=== PATIENT | male | born 1980 | race Caucasian/White ===

== ENCOUNTER 2020-02-21 10:06 | Day surgery (SDC) | payer OTHER, SELFPAY ==
[2020-02-13 20:11] VITALS: BMI 29.2
--- NOTE | 2020-02-20 08:57 | HO.ANESPROP2 ---
Documented by User: Maya Michaud 02/20/20 08:57 HPI - Anesthesia Eval Consult details Narrative: 40yo M for Upper Endoscopy [facility] Past Medical History Medical History Elevated liver enzymes GERD (gastroesophageal reflux disease) Hypercholesteremia Social History Social History Smoking Status: Former smoker Smoking Quit Date: 2018 Use of substances other than those prescribed or required for medical reasons: No Advance Directives: No Advance Directives Information Provided: No Advance Directives on File: No Meds Allergies Allergy/AdvReac Type Severity Reaction Status Date / Time No Known Allergies Allergy Verified 02/13/20 20:18 Home Medications Medication Instructions Recorded Confirmed Type omeprazole magnesium [Prilosec OTC] 20 mg PO DAILY 02/13/20 02/13/20 History pravastatin 1 tab PO DAILY 02/13/20 02/13/20 History Exam Exam Date and Time: February 20, 2020 0857 Height,Weight and Vital Signs: Height 5 ft 11 in Weight 95.254 kg Assessment and Plan Assessment Anesthesia Assessment: Chart Reviewed Documented by User: Ana Bah 02/21/20 11:48 [facility] Past Medical History Medical History Elevated liver enzymes GERD (gastroesophageal reflux disease) Hypercholesteremia Social History Social History Smoking Status: Former smoker Smoking Quit Date: 2018 Use of substances other than those prescribed or required for medical reasons: No Advance Directives: No Advance Directives Information Provided: No Advance Directives on File: No Meds Allergies Allergy/AdvReac Type Severity Reaction Status Date / Time No Known Allergies Allergy Verified 02/13/20 20:18 Home Medications Medication Instructions Recorded Confirmed Type omeprazole magnesium [Prilosec OTC] 20 mg PO DAILY 02/13/20 02/13/20 History pravastatin 1 tab PO DAILY 02/13/20 02/13/20 History Exam Airway Mallampati Class: I TM Dist: >3cm Neck ROM: Full Heart: RRR Lungs: CTA Assessment and Plan Assessment Anesthesia Assessment: Anesthesia Plan Discussed and Chart Reviewed Final Anesthetic Review NPO: Yes ASA Class: II Final Preanesthetic Review: Meds/Allgs Chart Reviewed, Consent Obtained/Reviewed and Anes Risks/Benef Reviewed Patient Risk: Low Procedure Risk: Intermediate Anesthetic Plan Anesthetic Plan: MAC:
[2020-02-21 10:24] VITALS: BP 139/82; PULSE 93; RESP 16; TEMP 36.2; O2SAT 98
[2020-02-21] MEDS: Lactated Ringers 1,000 ML 100 ML IVCONT (10:35)
--- NOTE | 2020-02-21 11:16 | MHC.SHP ---
Pre-Procedural Eval Section A The patient is an INPATIENT: No Changes since office visit: No Cold of Flu in the past 2 weeks, No New Medical Problems, No Changes in Medication and No Patient answered all questions The History & Physical has been completed within 30 days and I have reviewed it.: Yes Section B Chief Complaint: reflux Allergies: Allergies Allergy/AdvReac Type Severity Reaction Status Date / Time No Known Allergies Allergy Verified 02/13/20 20:18 Plan I have reviewed the history and physical and performed a pertinent physical examination on my patient. No changes have occurred unless specified.
[2020-02-21 11:42] VITALS: BP 137/85; PULSE 85; RESP 18; TEMP 36.4; O2SAT 99
--- NOTE | 2020-02-21 11:42 | PM.OP ---
Brief Operative Note Date of Service: 02/21/20 Pre-op diagnosis: GERD Post-op diagnosis: same Procedure: EGD Surgeon: Wilmar Leyva Anesthesia: MAC Estimated blood loss (mL): 5 Pathology: other (antral and EGJ biopsies) Condition: stable Disposition: PACU
[2020-02-21 11:57] VITALS: BP 109/75; PULSE 75; RESP 18; TEMP 36.4; O2SAT 96
--- NOTE | 2020-02-21 12:11 | OP_ITS ---
SURGEON: Wilmar Leyva MD INDICATIONS: Gastroesophageal reflux disease. PREOPERATIVE DIAGNOSIS: POSTOPERATIVE DIAGNOSIS: PROCEDURE PERFORMED: Upper endoscopy with biopsy. ESTIMATED BLOOD LOSS: COMPLICATIONS: ANESTHESIA: ASSISTANTS: SPECIMENS: MEDICATIONS: Monitored anesthesia care. DESCRIPTION OF PROCEDURE: History and physical performed. The risks and benefits of the procedure were explained to the patient. Informed consent was obtained. The patient was placed in the left lateral decubitus position. The Olympus video gastroscope was introduced into the esophagus, stomach, and duodenum. Examination was performed and the scope was removed. He tolerated the procedure well and returned to the recovery area in stable condition. FINDINGS: Esophagus: The esophagus was normal. There was no esophagitis. Biopsies were obtained from the EG junction. Stomach: Stomach showed no evidence of masses, ulcers, or polyps. Antral biopsies were obtained to rule out H pylori. Duodenum: The bulb and second portion were normal. IMPRESSION: Gastroesophageal reflux disease. RECOMMENDATION: Follow up the biopsy results. Wilmar Leyva MD BC/MODL / [id number] MTDD
--- NOTE | 2020-02-21 12:18 | HO.POSTANES ---
Post Anesthesia Evaluation Post Anesthesia Evaluation Vital Signs: Vital Signs Temp Pulse Resp BP Pulse Ox 02/21/20 11:57 97.6 F 75 18 109/75 96 02/21/20 11:42 97.6 F 85 18 137/85 99 02/21/20 10:24 97.1 F 93 16 139/82 98 Anesthesia: Monitored Mental Status: Awake Pain Control: Satisfactory Nausea/Vomiting: None Hydration: Adequate Anesthesia-Related Issues: No Anes. Related Issues
== END 2020-02-21 12:20 ==
LOC: HO.SSS 10:07
PROVIDERS: PCP Registered Nurse; Visit Provider Internal Medicine Gastroenterology
PROC: 0DJ08ZZ Inspection of Upper Intestinal Tract, Via Natural or Artificial Opening Endoscopic (ICD-10-PCS; CPT 43235; principal; 2020-02-21 11:20)
DX: K21.00 Gastro-esophageal reflux disease with esophagitis, without bleeding (principal); R74.8 Abnormal levels of other serum enzymes; E78.00 Pure hypercholesterolemia, unspecified; Z79.899 Other long term (current) drug therapy; Z87.891 Personal history of nicotine dependence
CPT/HCPCS: 43239; 88305; 88342

== ENCOUNTER 2020-09-25 20:41 | Emergency (ER) | payer OTHER, SELFPAY ==
--- NOTE | ~2020-09-25 | XR_ITS ---
EXAMINATION: XR TIBIA AND FIBULA, LEFT CLINICAL INFORMATION: Bruise on left leg. Question fracture. COMPARISON: None TECHNIQUE: AP and lateral views of the left tibia and fibula were obtained. FINDINGS: There is no fracture or cortical disruption. Alignment maintained at the knee and ankle. The soft tissues are unremarkable. XR/XR tibia fibula LT 2V IMPRESSION: No fracture or malalignment.
[2020-09-25 20:46] VITALS: BP 138/89; PULSE 92; RESP 16; TEMP 36.6; O2SAT 96; BMI 30.8
--- NOTE | 2020-09-25 23:26 | ED_ITS ---
HPI - Extremity Injury (Lower) General Chief Complaint: Extremity Injury, Lower Stated Complaint: left leg pain Time Seen by Provider: 09/25/20 22:36 Source: patient Mode of arrival: ambulatory Limitations: no limitations History of Present Illness HPI Narrative: Patient states left leg bruise since this past . Patient states he might have hit it while at work. Patient does work around heavy objects. Patient denies any leg swelling, calf pain, chest pain, shortness of breath, redness, fever, or chills. Patient denies any bruising/ecchymosis elsewhere on his body. complaint: leg injury Related Data Home Medications Medication Instructions Recorded Confirmed omeprazole magnesium 20 mg 20 mg PO DAILY 02/13/20 02/13/20 tablet,delayed release (Prilosec OTC) pravastatin 40 mg tablet 1 tab PO DAILY 02/13/20 02/13/20 Previous Rx's Medication Instructions Recorded cyclobenzaprine 10 mg tablet 10 mg PO TID PRN #18 tab 09/25/20 naproxen 500 mg tablet 500 mg PO BID PRN #20 tab 09/25/20 Allergies Allergy/AdvReac Type Severity Reaction Status Date / Time No Known Allergies Allergy Verified 09/25/20 20:52 Review of Systems Review of Systems: Yes all other systems are reviewed and are negative Constitutional: Constitutional: Reports as per HPI and Reports no additional constitutional complaints Eyes: Eyes: Reports as per HPI and Reports no additional eye complaints ENT: Reports system reviewed and no additional complaints, except as documented and Reports as per HPI Cardiovascular: Cardiovascular: Reports as per HPI and Reports no additional cardiovascular complaints Respiratory: Respiratory: Reports as per HPI and Reports no additional respiratory complaints Gastrointestinal: Gastrointestinal: Reports as per HPI and Reports no additional gastrointestinal complaints Genitourinary: Genitourinary: Reports no additional male genitourinary complaints and Reports as per HPI Musculoskeletal: Musculoskeletal: Reports no additional musculoskeletal complaints and Reports as per HPI Comments: Leg pain. Bruised Neurologic: Reports system reviewed and no additional complaints, except as documented and Reports as per HPI Psychiatric: Psychiatric: Reports no additional psychiatric complaints and Reports as per HPI [facility] Past Medical History Medical History Elevated liver enzymes GERD (gastroesophageal reflux disease) Hypercholesteremia Social History Social History Advance Directives: No Advance Directives Information Provided: Yes Physical Exam Vital Signs: Vital Signs: Last Vital Signs Temp 98 F 09/25/20 20:46 Pulse 92 09/25/20 20:46 Resp 16 09/25/20 20:46 BP 138/89 09/25/20 20:46 Pulse Ox 96 09/25/20 20:46 Body Mass Index 30.8 Const: General: cooperative, healthy appearing, comfortable, no acute distress, well developed, alert and awake Orientation/consciousness: patient oriented x3 HENMT: Head: Yes normal to inspection, Yes No palpable skull fracture present, Yes normocephalic and Yes atraumatic Eyes: General: appearance normal, both eyes and all related structures Neck: Neck: Yes normal visual inspection, Yes full ROM, Yes no lymphadenopathy, Yes no meningeal signs, Yes trachea midline, Yes supple and No tender Chest: Chest palpation & inspection: normal inspection of the chest and normal palpation of entire chest wall Resp: Effort & Inspection: normal respiratory effort and able to speak in complete sentences Cardio: Jugular venous distension: no JVD Heart sounds: S1 normal heart sound present and S2 normal heart sound present GI: Inspection: Yes normal to inspection and No abdominal wall ecchymosis Palpation (GI): Soft to palpation, not firm, nontender, no guarding and not rigid : General: No CVA tenderness and Yes no CVA tenderness Back/Spine/Pelvis: Back: no CVA tenderness, No CVA tenderness and No back tenderness Skin: Other: Ecchymosis on left leg Neuro: General: patient oriented x3, gait normal, moves all extremities, Normal light touch and pain sensation, no meningeal signs and CN's II-XI intact bilaterally Cranial nerves: Yes CN's II-XII intact bilaterally Extrem: Other: Positive for area of ecchymosis. Negative for any calf tende rness. Negative for any crepitus or leg deformity. Motor/neuro/vascular exam intact. Negative for any erythema Psych: Appearance: grossly normal, well kempt and not disheveled Course Course Course Narrative: Was sent for x-ray. Reevaluation(s) Reevaluation #1: X-ray negative for fracture. Not concerned for DVT, cellulitis, or compartment syndrome. Time: 23:37 MDM - Extremity Injury (Lower) MDM Narrative Medical decision making narrative: 23:37 Discharge Plan Discharge Clinical Impression: Contusion Patient Disposition: Home, Self-Care Instructions: Contusion in Adults (ED) Additional Instructions: X-rays came back negative for any fracture. Return to the ED for increased swelling, redness, worsening bruising, paralysis of lower extremity, cold, hotness of skin, loss of sensation, or any other concerning symptoms. Please follow-up with PCP Prescriptions: New naproxen 500 mg tablet 500 mg PO BID PRN (Reason: pain) Qty: 20 RF: 0 cyclobenzaprine 10 mg tablet 10 mg PO TID PRN (Reason: pain) Qty: 18 RF: 0 No Action pravastatin 40 mg tablet 1 tab PO DAILY RF: 0 omeprazole magnesium [Prilosec OTC] 20 mg Tablet,Delayed Release (Dr/Ec) 20 mg PO DAILY RF: 0 Interventions: ED Discharge Assessment Last Done: 09/25/20 23:46 Discharge Date/Time: 09/25/20 23:50 Print Language: Mauritanian
== END 2020-09-25 23:50 | disposition home or self-care (01) ==
PROVIDERS: Emergency Provider Internal Medicine
DX: S80.12XA Contusion of left lower leg, initial encounter (principal); X58.XXXA Exposure to other specified factors, initial encounter; Y93.9 Activity, unspecified; Y92.9 Unspecified place or not applicable; Y99.9 Unspecified external cause status
CPT/HCPCS: 73590; 99283

== ENCOUNTER 2020-11-29 14:17 | Emergency (ER) | payer OTHER, SELFPAY ==
--- NOTE | 2020-11-29 | ECG_ITS ---
Test Reason : palpitations Blood Pressure : / mmHG Vent. Rate : 093 BPM Atrial Rate : 093 BPM P-R Int : 148 ms QRS Dur : 092 ms QT Int : 346 ms P-R-T Axes : 031 -01 005 degrees QTc Int : 430 ms Normal sinus rhythm RSR' or QR pattern in V1 suggests right ventricular conduction delay Otherwise normal ECG When compared with ECG of 03-JUL-2018 17:39, ST no longer depressed in Lateral leads Nonspecific T wave abnormality no longer evident in Anterolateral leads Referred By: Generic ED Physician Electronically Signed By:LOUIS ACOSTA MD
--- NOTE | ~2020-11-29 | XR_ITS ---
EXAMINATION: XR CHEST CLINICAL INFORMATION: Shortness of breath COMPARISON: Chest radiographs 07/03/2018, 04/06/2014 TECHNIQUE: Portable upright AP view of the chest was obtained. FINDINGS: The lungs are clear. The vascularity is normal. There is no pneumothorax or pleural reaction or effusion. The heart is normal in size. The hilar and mediastinal contours and visualized bony structures are unremarkable. XR/XR chest 1V IMPRESSION: Unremarkable examination.
[2020-11-29 14:22] VITALS: BP 151/92; PULSE 91; RESP 18; TEMP 36.7; O2SAT 98; BMI 30.7
--- NOTE | 2020-11-29 15:46 | PC.NURSE ---
Adam presents alert and oriented x 3 with c./o severe palpitations. He states he has a Hx of palpitations but it never lasts this long, it just resolves on its own. This time it's not going away, it's really bad. He denies chest pain. Respirations are spontaneous and non-labored. Speech clear and appropriate. Skin pink/warm/dry. Bedside monitor reveals NSR with occasional PVC's - pt states he feels palpitation that coincides with PVC on bedside monitor. No nausea. No vomiting. No change in bowel or bladder habits. Pt is resting in bed awaiting initial provider eval.
--- NOTE | 2020-11-29 16:09 | ED.ARRPALP ---
HPI - Arrhythmia/Palpitations General Chief Complaint: Arrhythmia/Palpitations Stated Complaint: irregular hearbeat Time Seen by Provider: 11/29/20 15:59 History of Present Illness HPI narrative: Patient 40-year-old male with a history of PACs and PVCs in the past. Presented today with having episodes of palpitation. These palpitations comes as a single beat that he could feel. He is not really short of breath with it he is not having chest pain. No coughing or congestion or upper respiratory symptoms. No history of using excessive cord seen. No recreational drug use. Patient from home. No fever no chills no chest pain or shortness of breath no diaphoresis. No leg swelling. Patient from home. Related Data Home Medications Medication Instructions Recorded Confirmed omeprazole magnesium 20 mg 20 mg PO DAILY 02/13/20 02/13/20 tablet,delayed release (Prilosec OTC) pravastatin 40 mg tablet 1 tab PO DAILY 02/13/20 02/13/20 Previous Rx's Medication Instructions Recorded cyclobenzaprine 10 mg tablet 10 mg PO TID PRN #18 tab 09/25/20 naproxen 500 mg tablet 500 mg PO BID PRN #20 tab 09/25/20 Allergies Allergy/AdvReac Type Severity Reaction Status Date / Time No Known Allergies Allergy Verified 09/25/20 20:52 Review of Systems Review of Systems: No fever no chills no chest pain or diaphoresis All system reviewed otherwise negative [facility] Past Medical History Attestation statement: The following information was validated with the patient. Medical History Elevated liver enzymes GERD (gastroesophageal reflux disease) Hypercholesteremia Social History Social History Alcohol intake: never Patient Tobacco Use Status: Former Tobacco user Smoked in Last 30 Days: No Use of substances other than those prescribed or required for medical reasons: No Advance Directives: No Advance Directives Information Provided: No Physical Exam Vital Signs: Vital Signs: Last Vital Signs Temp 98.3 F 11/29/20 16:41 Pulse 90 11/29/20 16:41 Resp 18 11/29/20 16:41 BP 123/72 11/29/20 16:41 Pulse Ox 99 11/29/20 16:41 Body Mass Index 30.7 Appearance: Alert. Oriented X3. No acute distress. Eyes: Pupils equal, round and reactive to light. ENT: Pharynx normal. Neck: Normal inspection. Neck supple. No lymph nodes noted. No crepitus CVS: Normal heart rate and rhythm. Pulses normal. Normal S1 and S2 Respiratory: No respiratory distress. Breath sounds normal. No Wheezing. No rales Abdomen: Soft and nontender. No rigidity. No distention. good BS x4 Skin: Skin warm and dry. Normal skin color. Normal skin turgor. Extremities: No lower extremity edema. Neurovascular intact to all extremities. No Lacerations. No Rash Neuro: Oriented X 3. No motor deficit. No sensory deficit. Moving all extermities. No slurred speech MDM - Arrhythmia/Palpitations MDM Narrative Medical decision making narrative: Patient well-appearing not acute distress. PVC noted on patient's monitor. Patient's troponin was negative. Patient's thyroid was normal. He is not taking excessive amount of caffeine. No recreational drug use. History of PVCs PACs in the past. Will have patient follow-up with cardiology on an outpatient basis. In stable condition. Patient's EKG showed a sinus pattern heart rate was 90 IA QRS QT within normal limits is no acute ST segment elevation noted. Differential Diagnosis Differential diagnosis: Likely palpitations and anxiety Medical Records Attestation: I reviewed the patient's medical records. Lab Data Attestation: I reviewed the patient's lab results. Result diagrams: 11/29/20 16:22 11/29/20 16:22 Labs: Lab Results 11/29/20 11/29/20 11/29/20 Range/Units 16:22 16:22 16:22 WBC 7.3 (4.8-10.8) X10*3/uL RBC 5.64 (4.60-5.80) X10*6/uL Hgb 15.8 (14.0-18.0) g/dl Hct 46.4 (42-52) % MCV 82.3 (80-98) fL MCH 28.0 (27.0-33.0) pg MCHC 34.1 (31.0-36.0) g/dl RDW 12.8 (11.0-16.0) % Plt Count 276 (160-400) X10*3/uL MPV 9.1 L (9.4-12.4) fL Immature Gran % (Auto) 0.4 (0.0-0.4) % Neut % (Auto) 74.5 H (45-73) % Lymph % (Auto) 17.1 L (20-40) % [place] % (Auto) 6.2 (2-11) % Eos % (Auto) 1.1 (0-4) % Baso % (Auto) 0.7 (0-2) % Lymph # (Auto) 1.3 (1.2-4.9) X10*3/uL [place] # (Auto) 0.5 (0.1-1.2) X10*3/uL Eos # (Auto) 0.1 (0.0-0.4) X10*3/uL Baso # (Auto) 0.1 (0.0-0.2) X10*3/uL Abs Immat Gran (auto) 0.03 (0.00-0.03) X10*3/uL Absolute Neuts (auto) 5.4 (2.0-8.3) X10*3/uL Absolute Nucleated RBC 0.000 (0.0-0.012) X10*3/uL Nucleated RBC % (auto) 0.0 (0.0-0.2) /100WBC Sodium 139 (135-145) mmol/L Potassium 3.9 (3.3-5.1) mmol/L Chloride 105 (96-108) mmol/L Carbon Dioxide 25 (22-29) mmol/L Anion Gap 13 (12-20) BUN 11 (9-16) mg/dL Creatinine 0.92 (0.5-1.4) mg/dL Estim Creat Clear Calc 128.4 Estimated GFR > 60 Random Glucose 95 (60-115) mg/dL Calcium 10.0 (8.4-10.2) mg/dL Magnesium (1.6-2.6) mg/dL Troponin I High Sens < 3.5 (<3.5-35.0) ng/L TSH (0.32-4.0) uIU/mL 11/29/20 Range/Units 16:22 WBC (4.8-10.8) X10*3/uL RBC (4.60-5.80) X10*6/uL Hgb (14.0-18.0) g/dl Hct (42-52) % MCV (80-98) fL MCH (27.0-33.0) pg MCHC (31.0-36.0) g/dl RDW (11.0-16.0) % Plt Count (160-400) X10*3/uL MPV (9.4-12.4) fL Immature Gran % (Auto) (0.0-0.4) % Neut % (Auto) (45-73) % Lymph % (Auto) (20-40) % [place] % (Auto) (2-11) % Eos % (Auto) (0-4) % Baso % (Auto) (0-2) % Lymph # (Auto) (1.2-4.9) X10*3/uL [place] # (Auto) (0.1-1.2) X10*3/uL Eos # (Auto) (0.0-0.4) X10*3/uL Baso # (Auto) (0.0-0.2) X10*3/uL Abs Immat Gran (auto) (0.00-0.03) X10*3/uL Absolute Neuts (auto) (2.0-8.3) X10*3/uL Absolute Nucleated RBC (0.0-0.012) X10*3/uL Nucleated RBC % (auto) (0.0-0.2) /100WBC Sodium (135-145) mmol/L Potassium (3.3-5.1) mmol/L Chloride (96-108) mmol/L Carbon Dioxide (22-29) mmol/L Anion Gap (12-20) BUN (9-16) mg/dL Creatinine (0.5-1.4) mg/dL Estim Creat Clear Calc Estimated GFR Random Glucose (60-115) mg/dL Calcium 10.1 (8.4-10.2) mg/dL Magnesium 2.1 (1.6-2.6) mg/dL Troponin I High Sens (<3.5-35.0) ng/L TSH 0.89 (0.32-4.0) uIU/mL Discharge Plan Discharge Clinical Impression: Palpitations, Ventricular premature beats Patient Disposition: Home, Self-Care Instructions: Premature Ventricular Contractions (ED) Prescriptions: No Action pravastatin 40 mg tablet 1 tab PO DAILY RF: 0 omeprazole magnesium [Prilosec OTC] 20 mg Tablet,Delayed Release (Dr/Ec) 20 mg PO DAILY RF: 0 naproxen 500 mg tablet 500 mg PO BID PRN (Reason: pain) Qty: 20 RF: 0 cyclobenzaprine 10 mg tablet 10 mg PO TID PRN (Reason: pain) Qty: 18 RF: 0 Referrals: Radha Spicer NP [Primary Care Provider] - 2 days Vince Chopra MD [Physician] - 2 days
[2020-11-29 16:26] LABS: MANUAL DIFF FLAG NO
[2020-11-29 16:28] LABS: Basophils Absolute Auto 0.1 X10*3/uL (0.0-0.2); Basophils Percent Auto 0.7 % (0-2); Eosinophils Absolute Auto 0.1 X10*3/uL (0.0-0.4); Eosinophils Percent Auto 1.1 % (0-4); Hematocrit 46.4 % (42-52); Hemoglobin 15.8 g/dl (14.0-18.0); Imm Gran Abs Auto 0.03 X10*3/uL (0.00-0.03); Imm Gran Pct Auto 0.4 % (0.0-0.4); Lymphocytes Absolute Auto 1.3 X10*3/uL (1.2-4.9); Lymphocytes Percent Auto 17.1 % (20-40); Mean Corpuscular HGB Conc 34.1 g/dl (31.0-36.0); Mean Corpuscular Volume 82.3 fL (80-98); Mean Platelet Volume 9.1 fL (9.4-12.4); Monocytes Absolute Auto 0.5 X10*3/uL (0.1-1.2); Monocytes Percent Auto 6.2 % (2-11); Neutrophils Absolute Auto 5.4 X10*3/uL (2.0-8.3); Neutrophils Percent Auto 74.5 % (45-73); Platelet Count 276 X10*3/uL (160-400); Red Blood Count 5.64 X10*6/uL (4.60-5.80); Red Cell Distribution Width 12.8 % (11.0-16.0); White Blood Count 7.3 X10*3/uL (4.8-10.8)
[2020-11-29 16:40] LABS: Anion Gap 13 (12-20); Blood Urea Nitrogen 11 mg/dL (9-16); Calcium 10.1 mg/dL (8.4-10.2); Carbon Dioxide 25 mmol/L (22-29); Chloride 105 mmol/L (96-108); Creatinine Clr Calc Pharmacy 128.4; Estimated Glomerular Filt Rate > 60; Glucose Random 95 mg/dL (60-115); Magnesium 2.1 mg/dL (1.6-2.6); Potassium 3.9 mmol/L (3.3-5.1); Sodium 139 mmol/L (135-145)
[2020-11-29 16:41] VITALS: BP 123/72; PULSE 90; RESP 18; TEMP 36.8; O2SAT 99
[2020-11-29 16:47] LABS: Troponin-I High Sensitivity < 3.5 ng/L (<3.5-35.0)
[2020-11-29 17:01] LABS: TSH reflex Free T4 0.89 uIU/mL (0.32-4.0)
[2020-11-29 17:14] VITALS: BP 122/79; PULSE 88; RESP 14
--- NOTE | 2020-11-29 17:14 | PC.NURSE ---
Discharged at this time. The pt verbalized an understanding of all Dc orders and he ambualted out of the ED independently and with steady gait. At time of DCV he denies pain, denies palpitations. NSR, rate 70-80's, on bedside monitore with occasional PVC's/
== END 2020-11-29 17:17 | disposition home or self-care (01) ==
PROVIDERS: Emergency Provider Emergency Medicine Emergency Medical Services; PCP Registered Nurse
DX: I49.3 Ventricular premature depolarization (principal); R00.2 Palpitations
CPT/HCPCS: 36415; 71045; 80048; 82310; 83735; 84443; 84484; 85025; 93005; 99283; 99285

== ENCOUNTER 2023-03-08 02:27 | Emergency (ER) | payer OTHER, SELFPAY ==
--- NOTE | 2023-03-08 | ECG_ITS ---
Test Reason : ARRYTHMIA Blood Pressure : / mmHG Vent. Rate : 090 BPM Atrial Rate : 090 BPM P-R Int : 150 ms QRS Dur : 102 ms QT Int : 366 ms P-R-T Axes : 036 -10 029 degrees QTc Int : 447 ms Sinus rhythm with occasional Premature ventricular complexes Otherwise normal ECG When compared with ECG of 29-NOV-2020 14:32, Premature ventricular complexes are now Present Referred By: Generic ED Physician Electronically Signed By:BRANDO LLANES
--- NOTE | ~2023-03-08 | XR_ITS ---
EXAMINATION: XR CHEST CLINICAL INFORMATION: Palpitations. COMPARISON: 11/29/2020 TECHNIQUE: Frontal view of the chest was obtained. FINDINGS: No significant abnormality is noted involving the heart, lungs, mediastinum, bony thorax or soft tissues. XR/XR chest 1V IMPRESSION: Unremarkable examination.
[2023-03-08 02:44] VITALS: BP 141/86; PULSE 72; RESP 23; TEMP 36.6; O2SAT 99; BMI 33.3
[2023-03-08 03:09] LABS: Basophils Percent Auto 0.6 % (0-2); Eosinophils Absolute Auto 0.1 X10*3/uL (0.0-0.4); Eosinophils Percent Auto 1.9 % (0-4); Hematocrit 47.8 % (42.0-52.0); Hemoglobin 16.2 g/dl (14.0-18.0); Imm Gran Abs Auto 0.02 X10*3/uL (0.00-0.03); Imm Gran Pct Auto 0.3 % (0.0-0.4); Lymphocytes Absolute Auto 2.5 X10*3/uL (1.2-4.9); Lymphocytes Percent Auto 34.7 % (20-40); MANUAL DIFF FLAG NO; Mean Corpuscular HGB Conc 33.9 g/dl (31.0-36.0); Mean Corpuscular Hemoglobin 27.7 pg (27.0-33.0); Mean Corpuscular Volume 81.7 fL (80.0-98.0); Mean Platelet Volume 8.9 fL (9.4-12.4); Monocytes Absolute Auto 0.6 X10*3/uL (0.1-1.2); Monocytes Percent Auto 8.8 % (2-11); Neutrophils Absolute Auto 3.9 x10*3/uL (2.0-8.3); Neutrophils Percent Auto 53.7 % (45-73); Platelet Count 303 X10*3/uL (160-400); Red Blood Count 5.85 X10*6/uL (4.60-5.80); White Blood Count 7.2 X10*3/uL (4.8-10.8)
[2023-03-08 03:25] LABS: Alanine Aminotransferase 38 U/L (0-40); Albumin Level 4.3 g/dL (3.5-5.0); Alkaline Phosphatase 73 U/L (39-117); Anion Gap 11 (12-20); Aspartate Amino Transferase 21 U/L (5-37); Bilirubin Direct 0.3 mg/dL (0.0-0.5); Bilirubin Total 1.3 mg/dL (0.0-1.0); Blood Urea Nitrogen 11 mg/dL (9-16); Calcium 9.6 mg/dL (8.4-10.2); Carbon Dioxide 26 mmol/L (22-29); Chloride 108 mmol/L (96-108); Creatinine Clr Calc Pharmacy 123.1; Estimated Glomerular Filt Rate > 60; Glucose Random 106 mg/dL (60-115); Lipase 23 U/L (8-78); Magnesium 1.9 mg/dL (1.6-2.6); Potassium 3.4 mmol/L (3.3-5.1); Sodium 142 mmol/L (135-145); Total Protein 7.5 g/dL (6.5-8.0)
--- NOTE | 2023-03-08 03:26 | PC.NURSE ---
pt from home a&ox3, respirations even and unlabored. pt reporting onset of heart palpations after waking up this morning. pt reports he has hx of palpations and takes medications but reports today the medication did not work. pt denies chest pain, n/v/d. 20G placed in left AC, labs obtained and sent. pt normal sinus on tele 85-88.
[2023-03-08 03:29] LABS: B Type Natriuretic Peptide < 10 pg/mL (<100)
[2023-03-08 03:33] LABS: Troponin-I High Sensitivity < 2.7 ng/L (<3.5-35.0)
--- NOTE | 2023-03-08 03:55 | ED_ITS ---
HPI - Arrhythmia/Palpitations General Chief Complaint: Arrhythmia/Palpitations Stated Complaint: arrythmia Time Seen by Provider: 03/08/23 03:54 Source: patient Mode of arrival: ambulatory Limitations: no limitations History of Present Illness HPI narrative: 43-year-old male came in for evaluation of arrhythmia with palpitation for the past 2 weeks. Patient with known history of PVCs and paroxysmal atrial fibrillation his photogrammetric technician started him on metoprolol 25 mg daily since last month patient decided not to take the medicine presented today with increase palpitation and dysrhythmia. Patient is suffering from acid reflux that was diagnosed with upper endoscopy has been taking Prilosec, patient admitted that he is cutting down on eating chocolate and drinking caffeinated coffee, patient smokes vape, declined using drugs or drinking alcohol. No chest pain, no SOB. Related Data Home Medications Medication Instructions Recorded Confirmed omeprazole magnesium 20 mg 20 mg PO DAILY 02/13/20 02/13/20 tablet,delayed release (Prilosec OTC) pravastatin 40 mg tablet 1 tab PO DAILY 02/13/20 02/13/20 Previous Rx's Medication Instructions Recorded cyclobenzaprine 10 mg tablet 10 mg PO TID PRN pain #18 tabs 09/25/20 naproxen 500 mg tablet 500 mg PO BID PRN pain #20 tabs 09/25/20 Allergies Allergy/AdvReac Type Severity Reaction Status Date / Time No Known Allergies Allergy Verified 09/25/20 20:52 Review of Systems 2 Review of Systems: All other systems are reviewed and are negative Constitutional: Reports as per HPI and Reports no additional constitutional complaints Eyes: Reports as per HPI and Reports no additional eye complaints Reports system reviewed and no additional complaints, except as documented Cardiovascular: Reports as per HPI and Reports no additional cardiovascular complaints Respiratory: Reports as per HPI and Reports no additional respiratory complaints Gastrointestinal: Reports as per HPI and Reports no additional gastrointestinal complaints Genitourinary: Reports no additional female genitourinary complaints Musculoskeletal: Reports no additional musculoskeletal complaints Skin/Breast: Reports system reviewed and no additional complaints, except as docu Psychiatric: Reports no additional psychiatric complaints Endocrine: Reports no additional endocrine complaints Hematologic/Lymphatic: Reports no additional hematologic/lymphatic complaints Allergic/Immunologic: Reports no additional allergic/immunologic complaints Reports system reviewed and no additional complaints, except as documented and Reports Abnormal speech present PMFSH Past Medical History Onset Date is defined in the Problem List Problems that require an onset date and time if occurred within 24 hrs of arrival to the ED Aortic Dissection and Rupture; Neurologic impairment; Cardiopulmonary Arrest; Endotracheal Intubation; Insertion or Replacement of Mechanical Circulatory Assist Device Medical History Elevated liver enzymes GERD (gastroesophageal reflux disease) Hypercholesteremia Social History Social History Alcohol intake: never Patient Tobacco Use Status: Former Tobacco user Smoked in Last 30 Days: Yes Use of substances other than those prescribed or required for medical reasons: No Advance Directives: No Advance Directives Information Provided: No Physical Exam 2 Vital Signs: Vital Signs: Last Vital Signs Temp 97.9 F 03/08/23 02:44 Pulse 72 03/08/23 02:44 Resp 23 H 03/08/23 02:44 BP 141/86 H 03/08/23 02:44 Pulse Ox 99 03/08/23 02:44 O2 Del Method Room Air 03/08/23 02:44 BMI result Body Mass Index 33.3 Vital signs have been reviewed and appear to be correct. Blood pressure elevated. Heart rate normal. Respiratory rate normal. Temperature normal. Oxygen saturation normal. Appearance: Alert. Oriented X3. No acute distress. Head: Normal external exam. Normocephalic. Atraumatic. No Delcid signs noted. No raccoon eyes noted Eyes: PERRLA. EOMI. Conjunctiva and sclera normal. Eyelids normal. ENT: TM's Normal. Pharynx normal. Uvula midline. Moist mucous membranes. No trismus noted. No drooling noted. No muffled voice noted. Neck: Normal inspection. Neck supple. FROM. No adenopathy. Thyroid Normal. No meningeal signs. No neck mass noted. CVS: Normal heart rate and rhythm. Heart sound normal. No murmurs noted. Pulses normal throughout. Respiratory: No respiratory distress. Painless inspiration. Breath sounds normal. No wheezes/rales/rhonchi noted. Chest nontender. No accessory muscle usage noted or decreased air movement noted. Abdomen: Soft and nontender. Bowel sounds normal in all 4 quadrants. No distention noted. No organomegaly noted. No visible injury noted. Back: No CVA tenderness. Full range of motion noted. Skin: Skin warm and dry. Normal skin color. Normal skin turgor. No rashes/lesions/lacerations noted. Extremities: No lower extremity edema. Extremities exhibit normal range of motion. Extremities nontender. Neuro: Oriented X 3. Cranial nerve exam: II-XII are grossly intact No motor deficit. No sensory deficit. Reflexes normal. Course Reevaluation(s) Reevaluation #1: 43-year-old male history of paroxysmal atrial fibrillation and PVCs presented with palpitation and arrhythmia for the past 2 weeks felt it more frequent last night, patient is not compliant with metoprolol that was prescribed by his photogrammetric technician. While patient in the emergency department has a normal electrolytes and initial EKG showed frequent PVCs, patient's symptoms has improved while in the emergency department. Will discharge and follow up with photogrammetric technician. Time: 06:00 Medical Decision Making Differential Diagnosis Differential Diagnoses: The differential diagnosis associated with the presentation includes (AFib, PVCs, PACs, ACS, electrolyte abnormality, severe anemia.) Admission/Observation Consideration of admission/observation: Escalation of care including admission/observation considered Lab Data MDM Lab Attestation statement: I reviewed the patient's lab results. 03/08/23 03:05 03/08/23 03:05 Labs: Lab Results 03/08/23 Range/Units 03:05 WBC 7.2 (4.8-10.8) X10*3/uL RBC 5.85 H (4.60-5.80) X10*6/uL Hgb 16.2 (14.0-18.0) g/dl Hct 47.8 (42.0-52.0) % MCV 81.7 (80.0-98.0) fL MCH 27.7 (27.0-33.0) pg MCHC 33.9 (31.0-36.0) g/dl RDW 13.0 (11.0-16.0) % Plt Count 303 (160-400) X10*3/uL MPV 8.9 L (9.4-12.4) fL Immature Gran % (Auto) 0.3 (0.0-0.4) % Neut % (Auto) 53.7 (45-73) % Lymph % (Auto) 34.7 (20-40) % [place] % (Auto) 8.8 (2-11) % Eos % (Auto) 1.9 (0-4) % Baso % (Auto) 0.6 (0-2) % Lymph # (Auto) 2.5 (1.2-4.9) X10*3/uL [place] # (Auto) 0.6 (0.1-1.2) X10*3/uL Eos # (Auto) 0.1 (0.0-0.4) X10*3/uL Baso # (Auto) 0.0 (0.0-0.2) X10*3/uL Abs Immat Gran (auto) 0.02 (0.00-0.03) X10*3/uL Absolute Neuts (auto) 3.9 (2.0-8.3) x10*3/uL Absolute Nucleated RBC 0.000 (0.0-0.012) X10*3/uL Nucleated RBC % (auto) 0.0 (0.0-0.2) /100WBC Sodium 142 (135-145) mmol/L Potassium 3.4 (3.3-5.1) mmol/L Chloride 108 (96-108) mmol/L Carbon Dioxide 26 (22-29) mmol/L Anion Gap 11 L (12-20) BUN 11 (9-16) mg/dL Creatinine 0.94 (0.5-1.4) mg/dL Estim Creat Clear Calc 123.1 Estimated GFR > 60 Random Glucose 106 (60-115) mg/dL Calcium 9.6 (8.4-10.2) mg/dL Magnesium 1.9 (1.6-2.6) mg/dL Total Bilirubin 1.3 H (0.0-1.0) mg/dL Direct Bilirubin 0.3 (0.0-0.5) mg/dL AST 21 (5-37) U/L ALT 38 (0-40) U/L Alkaline Phosphatase 73 (39-117) U/L Troponin I High Sens < 2.7 (<3.5-35.0) ng/L B-Natriuretic Peptide < 10 (<100) pg/mL Total Protein 7.5 (6.5-8.0) g/dL Albumin 4.3 (3.5-5.0) g/dL Lipase 23 (8-78) U/L Independent Interpretation I performed an independent interpretation of an: EKG (Normal sinus rhythm at 90 beats per minute with occasional PVCs, normal intervals, no ST-T changes.) and Plain X-Ray (Chest: Unremarkable examination.) Radiology Impression Discussion of test interpretation with radiology: I have reviewed the radiologist's reading. Discharge Plan Discharge Clinical Impression: Palpitations, Ventricular premature beats Patient Disposition: Home, Self-Care Instructions: Premature Ventricular Contractions (ED) Additional Instructions: Follow-up with your photogrammetric technician, take metoprolol as prescribed by your photogrammetric technician. Avoid chocolate and caffeine. Prescriptions: No Action pravastatin 40 mg tablet 1 tab PO DAILY omeprazole magnesium [Prilosec OTC] 20 mg Tablet,Delayed Release (Dr/Ec) 20 mg PO DAILY naproxen 500 mg tablet 500 mg PO BID PRN (Reason: pain) Qty: 20 0RF cyclobenzaprine 10 mg tablet 10 mg PO TID PRN (Reason: pain) Qty: 18 0RF Rx Instructions: side effect is drowsiness. Do not take at work or while driving. Referrals: Radha Spicer NP [Primary Care Provider] -
--- NOTE | 2023-03-08 04:01 | ECG_ITS ---
Test Reason : REPEAT Blood Pressure : / mmHG Vent. Rate : 070 BPM Atrial Rate : 070 BPM P-R Int : 168 ms QRS Dur : 100 ms QT Int : 378 ms P-R-T Axes : 024 -03 -13 degrees QTc Int : 408 ms Normal sinus rhythm Normal ECG When compared with ECG of 08-MAR-2023 02:40, Premature ventricular complexes are no longer Present Referred By: Ana Horton Electronically Signed By:BRANDO LLANES
[2023-03-08 05:24] LABS: Appearance Urine Clear; Color Urine Yellow; Glucose Urine UA Negative (Negative); Leukocyte Esterase Urine Negative (Negative); Nitrite Urine Negative (Negative); PH 7.5 (5.0-9.0); Specific Gravity - Urine 1.015 (1.005-1.025); Urine Blood Negative (Negative); Urine Ketones Negative (Negative); Urine Protein Negative (Neg-Trace)
[2023-03-08 05:33] LABS: Troponin-I High Sensitivity < 2.7 ng/L (<3.5-35.0)
[2023-03-08 06:24] VITALS: BP 128/80; PULSE 86; RESP 18; TEMP 36.7; O2SAT 97
== END 2023-03-08 06:25 | disposition home or self-care (01) ==
PROVIDERS: Emergency Provider Emergency Medicine; PCP Registered Nurse
DX: I49.9 Cardiac arrhythmia, unspecified (principal); R00.2 Palpitations; I49.3 Ventricular premature depolarization; I48.0 Paroxysmal atrial fibrillation; R06.02 Shortness of breath; Z79.01 Long term (current) use of anticoagulants; Z79.899 Other long term (current) drug therapy
CPT/HCPCS: 36415; 71045; 80048; 80076; 81003; 83690; 83735; 83880; 84484; 85025; 93005; 99283; 99285

== ENCOUNTER → 2023-03-08 02:40 | Outpatient (BNV) | payer OTHER, SELFPAY | PROVIDERS: Emergency Provider Emergency Medicine; PCP Registered Nurse; Visit Provider Internal Medicine | DX: I49.8 Other specified cardiac arrhythmias (principal) | CPT/HCPCS: 93010 ==

== ENCOUNTER 2023-05-24 03:17 | Emergency (ER) | payer OTHER, SELFPAY ==
--- NOTE | 2023-05-24 | ECG_ITS ---
Test Reason : ? AFIB Blood Pressure : / mmHG Vent. Rate : 174 BPM Atrial Rate : 000 BPM P-R Int : 000 ms QRS Dur : 098 ms QT Int : 270 ms P-R-T Axes : 000 000 -62 degrees QTc Int : 459 ms Atrial fibrillation with rapid ventricular response Marked ST abnormality, possible inferior subendocardial injury Marked ST abnormality, possible anteroseptal subendocardial injury Abnormal ECG When compared with ECG of 08-MAR-2023 04:16, Atrial fibrillation has replaced Sinus rhythm Vent. rate has increased BY [address] now depressed in Inferior leads ST now depressed in Anterolateral leads T wave inversion more evident in Inferior leads Referred By: Generic ED Physician Electronically Signed By:LETTY MIGUEL MD
--- NOTE | 2023-05-24 | ECG_ITS ---
Test Reason : AFIB Blood Pressure : / mmHG Vent. Rate : 083 BPM Atrial Rate : 083 BPM P-R Int : 170 ms QRS Dur : 096 ms QT Int : 368 ms P-R-T Axes : 028 -04 -05 degrees QTc Int : 432 ms Normal sinus rhythm Normal ECG When compared with ECG of 24-MAY-2023 03:51, Sinus rhythm has replaced Atrial fibrillation Vent. rate has decreased BY [address] no longer depressed in Anterolateral leads T wave inversion no longer evident in Lateral leads Referred By: Jeremy Yip Electronically Signed By:LETTY MIGUEL MD
[2023-05-24 03:24] VITALS: BP 142/81; PULSE 175; RESP 20; TEMP 36.9; O2SAT 99; BMI 18.1
--- NOTE | 2023-05-24 03:30 | MHC.EDTECH ---
Patient brought into triage area,EKG taken per order and signed by provider,patient brought to ED bed4,changed into hospital attire,placed on the burglar alarm mechanic,vitals taken,RN made aware
[2023-05-24] MEDS: Metoprolol Tartrate 5 MG/5 ML VIAL IVPUSH (03:34)
[2023-05-24] MEDS: 0.9 % Sodium Chloride 1,000 ML 999 ML IV (03:34)
--- NOTE | 2023-05-24 03:37 | ED.ARRPALP ---
HPI - Arrhythmia/Palpitations General Chief Complaint: Arrhythmia/Palpitations Stated Complaint: afib Time Seen by Provider: 05/24/23 03:24 Source: patient Mode of arrival: ambulatory Limitations: no limitations History of Present Illness HPI narrative: Patient's history of palpitation off and on lasting only for few minutes for last 6 months diagnosed as SVT episodes on metoprolol succinate 25 mg daily today heart was beating for last 25 minutes when arrived to the ER heart rate was 163 beats per minute AFib on EKG patient feel anxious no dizziness no chest pain no shortness of breath no fever no caffeine intake Related Data Home Medications ?Medication ?Instructions ?Recorded ?Confirmed omeprazole magnesium 20 mg 20 mg PO DAILY 02/13/20 02/13/20 tablet,delayed release (Prilosec OTC) pravastatin 40 mg tablet 1 tab PO DAILY 02/13/20 02/13/20 Previous Rx's ?Medication ?Instructions ?Recorded cyclobenzaprine 10 mg tablet 10 mg PO TID PRN pain #18 tabs 09/25/20 naproxen 500 mg tablet 500 mg PO BID PRN pain #20 tabs 09/25/20 Allergies Allergy/AdvReac Type Severity Reaction Status Date / Time No Known Allergies Allergy Verified 05/24/23 03:30 Review of Systems Review of Systems: Yes all other systems are reviewed and are negative PMFSH Past Medical History Medical History Elevated liver enzymes GERD (gastroesophageal reflux disease) Hypercholesteremia Social History Social History Alcohol intake: never Patient Tobacco Use Status: Former Tobacco user Smoked in Last 30 Days: No Use of substances other than those prescribed or required for medical reasons: No Advance Directives: No Advance Directives Information Provided: No Physical Exam Vital Signs: Vital Signs: Last Vital Signs Temp 98.6 F 05/24/23 05:45 Pulse 71 05/24/23 05:45 Resp 14 05/24/23 05:45 BP 107/63 05/24/23 05:45 Pulse Ox 97 05/24/23 05:45 O2 Del Method Room Air 05/24/23 05:45 BMI result Body Mass Index 18.1 Appearance: Alert. Oriented X3. No acute distress. Anxious Eyes: PERRLA, No Nystagmus ENT: Pharynx normal. Oral Mucosa moist Neck: Normal inspection. Neck supple. CVS: Irregularly irregular tachycardic no murmur rub or gallop Respiratory: No respiratory distress. Equal air entry bilateral, no wheezing/rales/rhonchi Abdomen: Soft and nontender. Bowel sounds are present, no mass palpable, no CVA tenderness Skin: Skin warm and dry. Normal skin color. Normal skin turgor. Extremities: No lower extremity edema. No calf tenderness Neuro: Oriented X 3. No motor deficit. Medications Administered Discontinued Medications Generic Name Dose Route Start Last Admin Trade Name Freq PRN Reason Stop Dose Admin Diltiazem HCl 20 mg 05/24/23 03:47 05/24/23 03:52 Diltiazem Hcl 50 Mg/10 Ml Vial IVPUSH 05/24/23 03:48 20 mg STAT STA Administration Sodium Chloride 1,000 mls @ 999 mls/hr 05/24/23 03:24 05/24/23 04:35 Ns IV 05/24/23 04:24 Infused .Q1H1M ONE Infusion Metoprolol Tartrate 5 mg 05/24/23 03:29 05/24/23 03:34 Metoprolol Tartrate 5 Mg/5 Ml Vial IVPUSH 05/24/23 03:30 5 mg ONCE ONE Administration Medical Decision Making Medical Decision Making [facility] Narrative: Patient has atrial fibrillation chads vascular score of 0 with history of similar episode but lasting only for few minutes this time lasting for more than 25 minute just prior to arrival patient has been taking metoprolol succinate ER 25 mg daily for last few months in the ER patient was given 5 mg of IV Lopressor and 20 mg of Cardizem within 2 hours of medication it broke to normal sinus rhythm case discussed cementer machine applicator Dr. Chopra advised to increase the dose of Toprol to 50 mg and follow with him or his cementer machine applicator patient's potassium of 3.1 was given p.o. replacement and normal magnesium level Differential Diagnosis Differential Diagnoses: The differential diagnosis associated with the presentation includes Atrial fibrillation/atrial flutter/SVT Lab Data [facility] Lab Attestation statement: I reviewed the patient's lab results. 05/24/23 03:38 05/24/23 03:38 Labs: Lab Results 05/24/23 Range/Units 03:38 WBC 8.9 (4.8-10.8) X10*3/uL RBC 6.02 H (4.60-5.80) X10*6/uL Hgb 16.7 (14.0-18.0) g/dl Hct 49.0 (42.0-52.0) % MCV 81.4 (80.0-98.0) fL MCH 27.7 (27.0-33.0) pg MCHC 34.1 (31.0-36.0) g/dl RDW 13.1 (11.0-16.0) % Plt Count 331 (160-400) X10*3/uL MPV 9.2 L (9.4-12.4) fL Immature Gran % (Auto) 0.1 (0.0-0.4) % Neut % (Auto) 36.9 L (45-73) % Lymph % (Auto) 50.4 H (20-40) % [place] % (Auto) 9.3 (2-11) % Eos % (Auto) 2.6 (0-4) % Baso % (Auto) 0.7 (0-2) % Lymph # (Auto) 4.5 (1.2-4.9) X10*3/uL [place] # (Auto) 0.8 (0.1-1.2) X10*3/uL Eos # (Auto) 0.2 (0.0-0.4) X10*3/uL Baso # (Auto) 0.1 (0.0-0.2) X10*3/uL Abs Immat Gran (auto) 0.01 (0.00-0.03) X10*3/uL Absolute Neuts (auto) 3.3 (2.0-8.3) x10*3/uL Absolute Nucleated RBC 0.000 (0.0-0.012) X10*3/uL Nucleated RBC % (auto) 0.0 (0.0-0.2) /100WBC PT 12.2 (11.1-13.3) SEC INR 1.0 (0.9-1.1) APTT 33.0 (26.0-36.8) SEC Troponin I High Sens < 2.7 (<3.5-35.0) ng/L Independent Interpretation I performed an independent interpretation of an: EKG Interpretation: Atrial fibrillation with ventricular rate of 174 beats per minute no ST elevation no acute ischemia 0534 normal sinus rhythm heart rate 83 beats per minute normal interval normal axis no acute ST T wave changes Critical Care Time Critical Care Time Critical Care Time: Yes Total Critical Care Time: 55 Attestation: The patient was critically ill with a high probability of imminent or life threatening deterioration. I spent greater than ?60??minutes of discontinuous time evaluating the patient,delivering critical care at the bedside, discussing and evaluating pertinent data with consultants. Critical care time does not include time spent performing separately billable procedures or teaching. Total time spent performing critical care was 55???minutes. Discharge Plan Discharge Clinical Impression: Atrial fibrillation Patient Disposition: Home, Self-Care Instructions: Josfib (Atrial Fibrillation) (ED) Additional Instructions: Avoid caffeine drinks Increase the dose of metoprolol succinate ER to 50 mg daily See your cementer machine applicator Report to the ER if recurrence of palpitation Prescriptions: No Action pravastatin 40 mg tablet 1 tab PO DAILY omeprazole magnesium [Prilosec OTC] 20 mg Tablet,Delayed Release (Dr/Ec) 20 mg PO DAILY naproxen 500 mg tablet 500 mg PO BID PRN (Reason: pain) Qty: 20 0RF cyclobenzaprine 10 mg tablet 10 mg PO TID PRN (Reason: pain) Qty: 18 0RF Rx Instructions: side effect is drowsiness. Do not take at work or while driving. Referrals: Vince Chopra MD [Physician] - 1 week Print Language: Latvian
[2023-05-24 03:43] VITALS: PULSE 135
[2023-05-24 03:46] LABS: Basophils Absolute Auto 0.1 X10*3/uL (0.0-0.2); Basophils Percent Auto 0.7 % (0-2); Eosinophils Absolute Auto 0.2 X10*3/uL (0.0-0.4); Eosinophils Percent Auto 2.6 % (0-4); Hemoglobin 16.7 g/dl (14.0-18.0); Imm Gran Abs Auto 0.01 X10*3/uL (0.00-0.03); Imm Gran Pct Auto 0.1 % (0.0-0.4); Lymphocytes Absolute Auto 4.5 X10*3/uL (1.2-4.9); Lymphocytes Percent Auto 50.4 % (20-40); MANUAL DIFF FLAG NO; Mean Corpuscular HGB Conc 34.1 g/dl (31.0-36.0); Mean Corpuscular Hemoglobin 27.7 pg (27.0-33.0); Mean Corpuscular Volume 81.4 fL (80.0-98.0); Mean Platelet Volume 9.2 fL (9.4-12.4); Monocytes Absolute Auto 0.8 X10*3/uL (0.1-1.2); Monocytes Percent Auto 9.3 % (2-11); Neutrophils Absolute Auto 3.3 x10*3/uL (2.0-8.3); Neutrophils Percent Auto 36.9 % (45-73); Platelet Count 331 X10*3/uL (160-400); Red Blood Count 6.02 X10*6/uL (4.60-5.80); Red Cell Distribution Width 13.1 % (11.0-16.0); White Blood Count 8.9 X10*3/uL (4.8-10.8)
[2023-05-24 03:52] LABS: Prothrombin Time 12.2 SEC (11.1-13.3)
[2023-05-24] MEDS: dilTIAZem HCL 50 MG/10 ML VIAL 20 MG IVPUSH (03:52)
--- NOTE | 2023-05-24 04:05 | PC.NURSE ---
Patient presenting to ED for evaluation of rapid hear rate, at triage HR 165, A-fib on EKG. Patient brought to ED 6, placed on cardiac monior, Dr. Garcia at bedside. 20 G IV line established in R hand, labs drawn and sent to lab. Patient given Metoprolol 5 mg IV push with some improvement in HR 115-140. Repeat EKG completed. Cardizem 20 mg IV push administered, HR 78-100, O2 Sat 99% RA, BP 117/74. Patient requested a urinal, voided 850 mL of yellow, clear urine. Patient offers no c/o at this time. Call jin placed within patient's reach, plan of care ongoing.
[2023-05-24 04:14] LABS: Troponin-I High Sensitivity < 2.7 ng/L (<3.5-35.0)
--- NOTE | 2023-05-24 04:45 | PC.NURSE ---
BP 111/60, HR 80-110, a-fib on classroom monitor, denies chest pain/dizziness/ SOB. Dr. Garcia aware. Plan to administer Flecainide 150 mg PO.
[2023-05-24 05:45] VITALS: BP 107/63; PULSE 71; RESP 14; TEMP 37; O2SAT 97
--- NOTE | 2023-05-24 05:54 | PC.NURSE ---
Per Dr. Garcia hold Fleicainide 150 mg PO, normal sinus rhythm HR 75-80 noted on cardiac catheterization technologist, confirmed by EKG.
[2023-05-24] MEDS: Potassium Bicarbonate/Cit AC 25 MEQ TABLET.EFF PO (06:25)
[2023-05-24 06:34] VITALS: BP 112/71; PULSE 72; RESP 16; TEMP 36.7; O2SAT 98
[2023-05-24 08:01] LABS: Carbon Dioxide 19 mmol/L (22-29); Chloride 104 mmol/L (96-108); Potassium 3.1 mmol/L (3.3-5.1); Sodium 141 mmol/L (135-145)
[2023-05-24 08:02] LABS: Alanine Aminotransferase 32 U/L (0-40); Anion Gap 18 (12-20); Aspartate Amino Transferase 24 U/L (5-37); Bilirubin Total 1.9 mg/dL (0.0-1.0); Blood Urea Nitrogen 9 mg/dL (9-16); Calcium 9.4 mg/dL (8.4-10.2); Creatinine Clr Calc Pharmacy 69.9; Estimated Glomerular Filt Rate > 60; Glucose Random 111 mg/dL (60-115); Magnesium 2.2 mg/dL (1.6-2.6); Total Protein 7.6 g/dL (6.5-8.0)
[2023-05-24 08:03] LABS: Albumin Level 4.4 g/dL (3.5-5.0); Alkaline Phosphatase 84 U/L (39-117)
--- NOTE | 2023-05-25 07:38 | ECG_ITS ---
Test Reason : ARRYTHMIA Blood Pressure : / mmHG Vent. Rate : 142 BPM Atrial Rate : 000 BPM P-R Int : 000 ms QRS Dur : 094 ms QT Int : 320 ms P-R-T Axes : 000 012 265 degrees QTc Int : 492 ms Atrial fibrillation with rapid ventricular response with premature ventricular or aberrantly conducted complexes ST & T wave abnormality, consider lateral ischemia Abnormal ECG When compared with ECG of 24-MAY-2023 03:19, ST less depressed in Lateral leads Nonspecific T wave abnormality has replaced inverted T waves in Inferior leads T wave inversion now evident in Lateral leads Referred By: Jeremy Yip Electronically Signed By:Kenyon Vee
== END 2023-05-24 06:35 | disposition home or self-care (01) ==
PROVIDERS: Emergency Provider Internal Medicine
DX: I49.9 Cardiac arrhythmia, unspecified (principal); I48.91 Unspecified atrial fibrillation; Z87.891 Personal history of nicotine dependence; Z79.899 Other long term (current) drug therapy
CPT/HCPCS: 36415; 80053; 83735; 84484; 85025; 85610; 85730; 93005; 96361; 96374; 96375; 99285

== ENCOUNTER → 2023-05-24 03:19 | Outpatient (BNV) | payer OTHER, SELFPAY | PROVIDERS: Emergency Provider Internal Medicine; Visit Provider Internal Medicine Cardiovascular Disease | DX: I48.91 Unspecified atrial fibrillation (principal) | CPT/HCPCS: 93010 ==

== ENCOUNTER → 2023-05-25 07:38 | Outpatient (BNV) | payer OTHER, SELFPAY | PROVIDERS: Emergency Provider Internal Medicine; Visit Provider Internal Medicine Cardiovascular Disease | DX: R94.31 Abnormal electrocardiogram [ECG] [EKG] (principal) | CPT/HCPCS: 93010 ==

== ENCOUNTER 2025-01-27 06:00 | Emergency (ER) | payer OTHER, SELFPAY ==
--- OUTSIDE RECORDS SUMMARY | 2024-06-29 04:00 | XMS_ITS ---
Author Organization [facility] Address [address] [place] [address] Care Team Providers Care Teller Name Role Phone Radha Spicer Primary Care Provider Unavailab Wilmar Adams Jr REASON FOR VISIT gerd Encounters Encounter Location Date Provider Diagnosis [facility] [address] [place] [address] 06/29/2024 Wilmar Leyva Jr Plan Of Treatment No Information Progress Notes * TL GOLDDOB: [birth year] (45 yo M)Acc No.[id number]:06/29/2024 Progress Notes Patient: TL PAULINO Provider: Yuko Leyva MD :1980 A ge:44 Y S ex:Male Date:06/29/2024 Address:[address] [place], [place] [id number] Pcp:Radha Spicer Subjective: * Chief Complaints: * G erd * The named appointment provid er may or may not be the originator of this progress note, and it is not deemed complete until electronically signed by the appointment provider. Sign off status: Pending * Provider: Yuko Leyva MD Date: 0 06/29/2024 Generated for Kavyai sandy/Gusg/eTransmitting on: 1 03/30/2024 06:40 AM EST
--- NOTE | 2025-01-27 06:04 | ECG_ITS ---
Test Reason : afib Blood Pressure : */* mmHG Vent. Rate : 131 BPM Atrial Rate : * BPM P-R Int : * ms QRS Dur : 96 ms QT Int : 312 ms P-R-T Axes : * 3 -33 degrees QTcB Int : 460 ms Atrial fibrillation with rapid ventricular response Nonspecific ST and T wave abnormality Abnormal ECG When compared with ECG of 24-May-2023 05:34, Atrial fibrillation has replaced Sinus rhythm Vent. rate has increased by [address] now depressed in Anterolateral leads Referred By: Generic ED Physician Electronically Signed By: LETTY MIGUEL MD
[2025-01-27 06:09] VITALS: BP 112/72; PULSE 133; RESP 20; TEMP 36.8; O2SAT 97; BMI 33.4
--- NOTE | 2025-01-27 06:35 | ED_ITS ---
HPI - Arrhythmia/Palpitations General Chief Complaint: Arrhythmia/Palpitations Stated Complaint: Afib Time Seen by Provider: 01/27/25 06:11 Source: patient Mode of arrival: ambulatory Limitations: no limitations History of Present Illness ED Provider: HPI narrative: 45-year-old male with a known history of paroxysmal atrial fibrillation who presents after onset of an AFib episode at approximately 05:00 today. The patient states that he awoke, stretched in bed, and immediately felt the arrhythmia begin; stretching on awakening has been a consistent trigger for prior episodes. Episodes have occurred intermittently over the past six years, typically lasting only a few minutes and resolving spontaneously; however, the most recent prior episode (treated in this ED) lasted >4 hours. He takes metoprolol 50 mg once daily and reports good adherence. Denies chest pain. Reports occasional brief ?twinge? of mild shortness of breath that resolves quickly. No leg swelling. Denies any recent increase in caffeine or alcohol, and states he vapes but does not use illicit drugs. Not on anticoagulation and has never undergone electrical cardioversion, though it was previously planned but became unnecessary when he self-converted. He has a PCP who manages this, but they keep changing due to providers leaving the office Related Data Home Medications ?Medication ?Instructions ?Recorded ?Confirmed omeprazole magnesium 20 mg 20 mg PO DAILY 02/13/20 tablet,delayed release (Prilosec OTC) pravastatin 40 mg tablet 1 tab PO DAILY 02/13/2001/17 Previous Rx's ?Medication ?Instructions ?Recorded cyclobenzaprine 10 mg tablet 10 mg PO TID PRN pain #18 tabs 09/25/20 naproxen 500 mg tablet 500 mg PO BID PRN pain #20 t abs 09/25/20 Allergies Allergy/AdvReac Type Severity Reaction Status Date / Time No Known Allergies Allergy Verified 01/27/25 06:12 Review of Systems 2 Review of Systems: . Past Medical History * Paroxysmal atrial fibrillation (first episode ~6 years ago) * Hyperlipidemia * Denies history of hypertension Medications * Metoprolol 50 mg PO daily * Repatha (evolocumab) ? dosing per home regimen Social History * Vapes * Rare alcohol use * No illicit drug use * PCP has changed frequently due to providers leaving the office Review of Systems Cardiovascular: Positive for palpitations. Denies chest pain. Respiratory: Occasional brief mild shortness of breath/twinge; currently denies ongoing dyspnea. Peripheral Vascular: Denies leg swelling. GI, , Neuro, MSK, Skin, Psych: Not discussed. Constitutional: Constitutional: Reports as per [facility] Past Medical History Medical History Elevated liver enzymes GERD (gastroesophageal reflux disease) Hypercholesteremia Social History Social History Alcohol intake: never Patient Tobacco Use Status: Former Tobacco user Smoked in Last 30 Days: No Substance Use Type Other:: vape Advance Directives: No Advance Directives Information Provided: Yes Physical Exam 2 Exam: Exam: * General: Appears comfortable; not in acute distress. * HEENT: Head atraumatic and normocephalic.. No scleral icterus or conjunctival injection. * Neck: Supple, no jugular venous distension, no lymphadenopathy, no thyromegaly. * Cardiovascular: Tachycardic; irregularly irregular rhythm; no murmurs, rubs, or gallops appreciated. Peripheral pulses intact. No carotid bruits. * Respiratory: Lungs clear to auscultation bilaterally; no rales, wheezes, or rhonchi. No increased work of breathing. * Abdomen: Soft, non-tender, non-distended. No reported belly pain. Bowel sounds present. No hepatosplenomegaly. * Extremities: No peripheral edema. No cyanosis or clubbing. No calf tenderness. * Neurologic: Alert and oriented x3. Cranial nerves II-XII grossly intact. No focal deficits. Motor and sensory function intact. * Skin: Warm, dry, and intact. No rashes, lesions, or bruising. Vital Signs: Vital Signs: Last Vital Signs Temp 98.1 F 01/27/25 07:46 Pulse 82 01/27/25 07:46 Resp 16 01/27/25 07:46 BP 112/76 01/27/25 07:46 Pulse Ox 96 01/27/25 07:46 O2 Del Method Room Air 01/27/25 07:46 BMI result Body Mass Index 33.4 Medications Administered Discontinued Medications Generic Name Dose Route Start Last Admin Trade Name Freq PRN Reason Stop Dose Admin Sodium Chloride 1,000 mls @ 999 mls/hr 01/27/25 06:45 01/27/25 07:45 Ns IV 01/27/25 07:45 Infused .Q1H1M JESS Infusion Metoprolol Tartrate 5 mg 01/27/25 06:35 01/27/25 06:40 Metoprolol Tartrate 5 Mg/5 Ml Vial IVPUSH 01/27/25 06:36 5 mg ONCE ONE Administration Protocol Medical Decision Making Medical Decision Making [facility] Narrative: 6:46 AM 01/27/2025 (Dr. Angelo Grullon): Plan discussed with patient: initiate IV fluids, administer IV metoprolol 5?mg with possible additional 5?mg (total 10?mg) depending on response, obtain laboratory evaluation (CBC, BMP, troponin, thyroid panel, magnesium, potassium) to assess for anemia, dehydration, electrolyte or metabolic abnormalities, and place on continuous cardiac monitoring to observe for spontaneous conversion. Provider will review prior records and may coordinate with cardiology regarding potential need for anti-arrhythmic therapy (e.g., flecainide) and consideration of antithrombotic therapy (e.g., aspirin) based on risk assessment. patient is not experiencing chest pain, did not feel there is any utility for troponin, sometimes in AFib with RVR troponins are slightly elevated and there was really no clinical utility to checking these without any other symptoms. 6:50 AM 01/27/2025 (Dr. Angelo Grullon): The [id number] score for this patient is 0.?This patient requires?no antithrombotic therapy. Anticoagulation is not indicated, and aspirin should not be used for stroke prevention. 8:07 AM 01/27/2025 (Dr. Angelo Grullon): patient converted with the metoprolol to sinus rhythm, 85 beats per minute normal sinus rhythm, T bili has been high since last year actually lower at this time, slight elevation in the LFTs, cardiac enzymes Not checked as per plan and patient continues to be asymptomatic. Differential Diagnosis Differential Diagnoses: The differential diagnosis associated with the presentation includes (Atrial fibrillation, ACS, PE, thyroid issues, electrolyte derangements) Admission/Observation Consideration of admission/observation: Escalation of care including admission/observation considered Lab Data [facility] Lab Attestation statement: I reviewed the patient's lab results. 01/27/25 06:42 12/12/25 06:42 Labs: Lab Results 01/27/25 Range/Units 06:42 WBC 6.6 (4.8-10.8) X10*3/uL RBC 5.89 H (4.60-5.80) X10*6/uL Hgb 16.5 (14.0-18.0) g/dl Hct 49.6 (42.0-52.0) % MCV 84.2 (80.0-98.0) fL MCH 28.0 (27.0-33.0) pg MCHC 33.3 (31.0-36.0) g/dl RDW 12.9 (11.0-16.0) % Plt Count 283 (160-400) X10*3/uL MPV 9.9 (9.4-12.4) fL Immature Gran % (Auto) 0.3 (0.0-0.4) % Neut % (Auto) 43.9 L (45-73) % Lymph % (Auto) 41.0 H (20-40) % Stanton % (Auto) 9.7 (2-11) % Eos % (Auto) 4.2 H (0-4) % Baso % (Auto) 0.9 (0-2) % Lymph # (Auto) 2.7 (1.2-4.9) X10*3/uL Stanton # (Auto) 0.6 (0.1-1.2) X10*3/uL Eos # (Auto) 0.3 (0.0-0.4) X10*3/uL Baso # (Auto) 0.1 (0.0-0.2) X10*3/uL Abs Immat Gran (auto) 0.02 (0.00-0.03) X10*3/uL Absolute Neuts (auto) 2.9 (2.0-8.3) x10*3/uL Absolute Nucleated RBC 0.000 (0.0-0.012) X10*3/uL Nucleated RBC % (auto) 0.0 (0.0-0.2) /100WBC Sodium 141 (135-145) mmol/L Potassium 3.8 D (3.3-5.1) mmol/L Chloride 109 H (96-108) mmol/L Carbon Dioxide 21 L (22-29) mmol/L Anion Gap 15 (12-20) BUN 11 (9-16) mg/dL Creatinine 0.90 (0.5-1.4) mg/dL Estim Creat Clear Calc 126.1 Estimated GFR > 60 Random Glucose 146 H (60-115) mg/dL Calcium 9.0 (8.4-10.2) mg/dL Magnesium 2.3 (1.6-2.6) mg/dL Total Bilirubin 1.3 H (0.0-1.0) mg/dL AST 40 H (5-37) U/L ALT 50 H (0-40) U/L Alkaline Phosphatase 72 (39-117) U/L Total Protein 7.6 (6.5-8.0) g/dL Albumin 4.4 (3.5-5.0) g/dL TSH 2.00 (0.32-4.0) uIU/mL Independent Interpretation I performed an independent interpretation of an: EKG ( 131 beats per minute AFib with RVR) Critical Care Time Critical Care Time Critical Care Time: Yes Total Critical Care Time: 45 Attestation: Time is exclusive of separately billable procedures. Time includes: direct patient care, patient reassessment, coordination of patient care, interpretation of data (laboratory data, pulse oximetry, arterial blood gases and chest xrays), review of patient's medical records, medical consultation and documentation of patient care. Procedures excluded from critical care time: central intravenous line placement and electrocardiography. Discharge Plan Discharge Clinical Impression: Atrial fibrillation with RVR Additional Instructions: Please follow up with the PCP, no medication changes at this times, your blood work has been fairly unremarkable, thyroid panel was checked it was unremarkable, EKG initially had atrial fibrillation with a rapid response, now your back in sinus rhythm, your blood pressure has remained stable, you have had minimal symptoms related to atrial fibrillation, I recommend cutting down on caffeine, I am meeting energy drinks, fallen up with the PCP, any chest pain, shortness of breath any other concerns come back to the ER, these are my general recommendations and your case we also spoke about risk factors necessitating aspirin or blood thinners and giving her age and risk factors no aspirin or blood thinners indicated for intermittent atrial fibrillation but I would like you to follow up with the PCP any other issues concerns come back to the ER Prescriptions: No Action pravastatin 40 mg tablet 1 tab PO DAILY omeprazole magnesium [Prilosec OTC] 20 mg Tablet,Delayed Release (Dr/Ec) 20 mg PO DAILY naproxen 500 mg tablet 500 mg PO BID PRN (Reason: pain) Qty: 20 0RF cyclobenzaprine 10 mg tablet 10 mg PO TID PRN (Reason: pain) Qty: 18 0RF Rx Instructions: side effect is drowsiness. Do not take at work or while driving. Print Language: Bulgarian
--- OUTSIDE RECORDS SUMMARY | 2025-01-27 06:39 | XMS_ITS | Encounter Summary ---
Author Organization [facility] Address [address] [place] [address] Phone Care Team Providers Care Percussion Instrument Repairer Name Role Phone Radha Spicer CNP Primary Care Provider Wilmar Leyva MD Unavailable Pcp, Not Required Primary Care Provider Unavaila Mac Lawson MD Primary Care Provider [phone] Encounter Details Date Type Department Care Team (Latest Contact Info) Description 11/30/2020 Ancillary Orders [facility] [address] [place] [address] [address] Floor, [address] [place] [address] Lori Howard MD [address] [place] [id number] [email or web address] PVC (premature ventricular contraction); Palpitations Social History Tobacco Use Types Packs/Day Years Used Date Smoking Tobacco: Former Cigarettes 0.1 2 1 996 - 1997 Smokeless Tobacco: Never Comments:prior 2-3 cigarette s daily, d/c vape Alcohol Use Standard Drinks/Week Comments Yes 0 (1 standard drink = 0.6 oz pur e alcohol) couples times a year if that Child or Family Care Answer Date Record ed Do you have problems with on e of the following making it difficult for you to work, study, or receive health care? No 07/06/2020 Education Answer Date Recorded Are you interested in help w ith more adult education (for example, completing high school, GED, job training, learning the [place] language, technical skills, or developing parenting skills)? No 07/06/2020 Are you concerned about learning? Not on file 07/06/2020 Not on file 07/06/2020 Not on file 07/06/2020 Food Answer Date Recorded Within the past 6 months we worried whether our food would run out before we got money to buy more. Never True 07/06/2020 Within the past 6 months the food we bought just didn't last and we didn't have enough money to get more. Never True Paying for Meds Answer Date Recorded Do you have trouble paying for medicines? No 07/06/2020 Paying Utility Bills Answer Date Record ed Do you have trouble paying your heating or elect ricity bill? No 07/06/2020 Transportation Answer Date Recorded Has the lack of transportati on kept you from medical appointments or from getting medications? No 07/06/2020 Sex and Gender Information Value Date Recorded Sex Assigned at Male 12/23/2019 10:38 AM EST Legal Sex Male 9:22 PM EDT Gender Identity Male 12/23/2019 10:38 AM EST Sexual Orientation Not on file documented as of this encounter Plan of Treatment Upcoming Encounters Date Type Department Care Team (Late st Contact Info) Description 07/12/2025 8:00 AM EDT Office Visit [facility] [address] [place] [address] [address] Floor, [address] [place] [address] Chano Rivas MD [address] [place] [address] [email or web address] documented as of this encounter Visit Diagnoses Diagnosis PVC (premature ventricular contraction) Other premature beats Palpitations documented in this encounter Additional Health Concerns Assessment Noted Time PHQ-2 Depression Total Score: 0 07/07/19 21 7:53 AM EDT documented as of this encounter Care Teams Percussion Instrument Repairer Relationship Specialty Start Date End Date Radha Spicer CNP [address] [place] [address] [email or web address] PCP - General Internal Medicine 12/29/17 09/22/22 Pcp, Not Required [address] [place] [address] [address] [place] [address] PCP - General 11/03/22 05/24/23 Mac Ureña MD [address] [place] [address], [address] [place] [address] [email or web address] PCP - General Family Medicine 05/25/23 Wilmar Leyva MD [address] [place] [phone] Gastroenterology 03/04/19 documented as of this encounter Additional Source Comments The information contained in this document represents components of the legal health record. It is not the complete legal health record.[facility]
--- OUTSIDE RECORDS SUMMARY | 2025-01-27 06:40 | XMS_ITS | Encounter Summary ---
Author Organization [facility] Address [address] [facility] [address] [place] [address] Phone Care Team Providers Care Cnc Machine Setter Name Role Phone Dannielle Radhafred Soriano ANTIQUE REPAIRER Primary Care Provider Wilmar Leyva MD Unavailable Pcp, Not Required Primary Care Provider Unavaila Mac Lawson MD Primary Care Provider [phone]- [phone] Encounter Details Date Type Department Care Team (Late st Contact Info) Description 03/24/2022 Procedure Pass Non-Invasive Cardiology [address] [place] [address] Social History Tobacco Use Types Packs/Day Years [...] high school, GED, job training, learning the [place] language, technical skills, or developing parenting skills)? [...] Description 07/12/2025 8:00 AM EDT Office Visit [facility] [address] [place] [address] [address]rd Floor, [address] [place] [address] Chano Rivas MD [address] [place] [address] documented as of this encounter Visit Diagnoses Not on filedocumented in this encounter Additional Health Concerns Assessment Noted Time PHQ-2 Depression Total Score: 0 12/28/19 22 2:38 PM EST documented as of this encounter Care Teams Cnc Machine Setter Relationship Specialty Start Date End Date Radha Spicer CNP [address] [place] [address] PCP - General Internal Medicine 12/29/17 09/22/22 Pcp, Not Required [address] [place] [address] [address] [place] [address] PCP - General 11/03/22 05/24/23 Mac Ureña MD [address] [facility] [place] [address] PCP - General Family Medicine 05/25/23 Wilmar Leyva MD [address] [place] [address] [address] [place] [address] Gastroenterology 03/04/19 documented as of this encounter Additional Source Comments The information contained in this document represents components of the legal health record. It is not the complete legal health record.[facility]
--- OUTSIDE RECORDS SUMMARY | 2025-01-27 06:40 | XMS_ITS ---
Author Organization Unknown ENCOUNTERS Encounter Performer Location Date Diagnosis Diagnosis Status Emergency [address] [id number] SALLIE Pre Admit Generic ED Physician [facility] [address] [place] [address] [phone] Emergency Hermila [address] [phone] SALLIE *Note: Encounters from your own facility or health system may be excluded. Allergies, Adverse Reactions, Alerts Allergen Type Severity Identification Date Medications Name Date Quantity Days Supplied GPI Number
--- OUTSIDE RECORDS SUMMARY | 2025-01-27 06:40 | XMS_ITS | Clinical Summary ---
Author Organization [facility] Address [address] [facility] [address] [place] [address] Phone Care Team Providers Care Head Inspector And Center Marker Name Role Phone Wilmar Leyva MD Unavailable Mac Ureña MD Primary Care Provider [phone] Allergies Active Allergy Reactions Criticality Noted Date Comments Cbgdfzg-Msx-Zlf Reductase Inhibitors 03/24/2023 Muscle aches/joint aches --significant spasms Medications REPATHA SURECLICK 140 mg/mL PnIj subcutaneous pen injectorIndications:Pur e hypercholesterolemia INJECT 140MG SUBCUTANEOUSLY EVERY 2 WEEKS 6 mL 3 024 Active omeprazole (PRILOSEC) 20 MG capsule TAKE 1 CAPSULE BY MOUTH DAILY 90 capsule 3 025 Active metoprolol succinate (TOPROL-XL) 50 MG 24 hr tabletIndications:PAF (paroxysmal atrial fibrillation) TAKE 1 TABLET BY MOUTH DAILY 90 tablet 3 025 Active Active Problems Problem Noted Date Diagnosed Date PVC (premature ventricular contraction) 09/25/19 24 Assessment & Plan (01/04/2024 1:29 PM EST): [place] is low at less than 0.1%. Continue metoprolol Assessment & Plan (09/25/2023 2:10 PM EDT): Will request for MCT to evaluate for burden. Continue metoprolol. Class 1 obesity due to exces s calories with serious comorbidity and body mass index (BMI) of 33.0 to 33.9 in adult 03/24/2023 Elevated LFTs 03/16/2022 Assessment & Plan (03/16/2022 1:07 PM EST): Monitor with labs Left leg pain 03/16/2022 Assessment & Plan (03/16/2022 1:07 PM EST): Check u/s LLE given new pain x 3 weeks. Impaired fasting glucose 03/16/2022 Assessment & Plan (03/16/2022 1:07 PM EST): Check A1c with next labs. Palpitations 12/04/2020 Assessment & Plan (06/24/2021 9:13 AM EDT): He tells me his palpitations have resolved. He does have a sensation of vertigo at times but overall he has improved with his symptoms. Assessment & Plan (03/11/2021 8:47 AM EST): He had an extensive work-up including a stress echo, and a Holter monitor which were normal. He feels that maybe these are a vagal response because he feels he can trigger them with movement. I told him it was unlikely that these were basal response and basal responses typically include bradycardia and syncope. He is reassured that his palpitations are benign. Assessment & Plan (12/04/2020 10:30 AM EDT): He continues to have occasional palpitations due to PVCs and PACs. He had an extensive work-up including a stress echo, an echo, and a monitor over the past couple of years. I have suggested that he make attempts at stress reduction. He can try taking a magnesium supplement for his ectopy. He should make attempts at stress reduction especially given his recent job promotion. I have suggested that he start exercising. 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 He had a detailed discussion with regards to ablation versus lifestyle modification. Patient at this point opted for lifestyle modification. Counseled about weight loss, counseled about alcohol cessation, counseled about the importance of sleep apnea machine, counseled about aerobic activity of 30 minutes every day Assessment & Plan (09/25/2023 2:09 PM EDT): In view of low burden of atrial fibrillation patient opted for rate control. Will continue metoprolol. Patient was counseled in detail about diet and lifestyle modifications. Request for MCT to evaluate for burden of atrial fibrillation. Assessment & Plan (06/11/2023 3:02 PM EDT): Recent [facility] emergency room visit for atrial fibrillation. I do not have records, however, patient has copies of the EKGs in the office today which do confirm A-fib. Records requested from [facility]. His metoprolol was increased from 25 to 50 mg daily Which he is tolerating okay, some fatigue. No obvious triggers identified on discussion. Due to patient's young age and now documented A-fib episode, I would like to set him up with risk investigator for consideration of ablation versus antiarrhythmic as he is quite symptomatic during paroxysms of A-fib (4th episode in his life that he knows of per report.) Assessment & Plan (07/03/2022 1:59 PM EDT): Tracing sent from his Apple Watch highly suspicious for atrial fibrillation. At the time he took this tracing, he was experiencing significant palpitations and lightheadedness. He felt quite fatigued for the entire day following the episode (which lasted about 2-3 minutes in total). His EKG today shows normal sinus rhythm. He has worn numerous Holter and event monitors in the past which have shown PACs and PVCs, but no definitive atrial fibrillation. Will repeat a 30 day event monitor. He has not had an echocardiogram or stress test since 2019, so will update these along with basic labs (TSH, BMP). He was very uncomfortable during the paroxysm of suspected atrial fibrillation recently. Will prescribe 25 mg metoprolol tartrate to be used PRN during further episodes of palpitations. Depending on the results of his monitor, we can consider antiarrythmic options. Assessment & Plan (06/24/2021 9:14 AM EDT): He denies any other symptoms. Paroxysmal atrial fibrillation including palpitations. He does report some daytime sleepiness and weekends approximately 1-2 times per night. He also tells me he feels lethargic at times. He is not on any medications that would cause this. He is encouraged to exercise. I did offer him to see sleep medicine for possible sleep study but he would like to hold off on this for now. He also feels he is under increased amount of stress due to his work and may be contributing to this. Assessment & Plan (12/02/2018 7:52 PM EDT): Symptomatic PAF that is captured on a apple watch and recorded into the chart. Review of the strip not entirely conclusive that atrial fibrillation but warranting further assessment by cardiology. EKG coming back at sinus rhythm today with some aspecific changes, small repolarization disturbances. Patient assured of the sinus rhythm. Patient will be set up with [facility] to further assess, discussion of previous Holter monitor as well as echocardiogram showing unremarkable results. In assessment for anticoagulation conducted, patient at this point does not need Coumadin or novel anticoagulants. Other hyperlipidemia 07/10/2018 Assessment & Plan (07/03/2022 1:53 PM EDT): He has trial numerous statin medications in the past (most recently low doses of atorvastatin and pravastatin) and experienced debilitating myalgias and headaches. He is very motivated to get his cholesterol levels under control. Will obtain prior authorization for PCSK-9 inhibitor (given history of multiple statin intolerances) and schedule him to come in for a teaching session for his first dose. Assessment & Plan (04/27/2022 4:15 PM EDT): Continue to hold statin. I will cc Dr. Cochran re: consideration of PCSK9 inhibitor. Assessment & Plan (06/24/2021 9:13 AM EDT): He recently just restarted taking his pravastatin 40 mg daily. He has not had a lipid panel drawn in some time and would like to put off getting another one return for couple of months because he recently just restarted this medication again. He does not have a great diet and he is not exercising. He is encouraged to follow heart healthy diet including low-sodium and to start exercising. Assessment & Plan (03/11/2021 8:48 AM EST): He reports that he was had him random sharp pains in his head and throughout his body. He did self experiment stopping his statin on February 28 and he states that these have resolved completely. I will change his statin from pravastatin 40 mg to rosuvastatin 5 mg daily to see if he tolerates this. Repeat a lipid panel in 3 months. Is encouraged to continue to follow a heart healthy diet including low-sodium and to exercise. Follow-up with televisit in 4 months to review those results and to discuss a statin. Assessment & Plan (12/04/2020 10:28 AM EDT): Continue with statin. Assessment & Plan (12/02/2018 7:52 PM EDT): Patient can continue with the Pravachol at 40 mg daily for treatment of his hypercholesterolemia. Gastroesophageal reflux disease without esophagi tis 07/08/2018 Migraine without aura and responsive to treatmen t 07/08/2018 Immunizations Immunization Administration Dates Next Due COVID-19 (Pre-12/08) Pfizer Vaccine, mRNA, PF ,05/03/2020 INFLUENZA, SPLIT VIRUS, TRIVALENT W/ PRESERVATIV E IM 12/16/2013 Tdap 08/02/2013 Family History Medical History Relation Comments CV disease Mother Diverticulitis Mother Diabetes mellitus Paternal Grandmother Sleep disorder Neg Hx Relation Status Comments Mother CA age 53 Paternal Grandmother Alive Social History Tobacco Use Types Packs/Day Years Used Date Smoking Tobacco: Former Cigarettes 0.1 2 1 996 - 1998 Smokeless Tobacco: Never Tobacco Cessation:Counseling Given: Not Answered Comments:prior 2-3 cigarettes daily. Now vaping. Alcohol Use Standard Drinks/Week Comments Yes 0 (1 standard drink = 0.6 oz pur e alcohol) 1-2 drinks per year Child or Family Care Answer Date Record ed Do you have problems with on e of the following making it difficult for you to work, study, or receive health care? No 04/22/2022 Education Answer Date Recorded Are you interested in more education? Not on vidal e 04/27/2024 Are you concerned about learning? Not on file 04/27/2024 No 04/27/2024 No 04/27/2024 Food Answer Date Recorded Within the past 6 months we worried whether our food would run out before we got money to buy more. Never True 04/22/2022 Within the past 6 months the food we bought just didn't last and we didn't have enough money to get more. Never True Residential Stability Answer Date Recor ded What is your housing situation today? I have ingrid sing 04/22/2022 How many times have you move d in the past 12 months? Zero (I did not move) 04/22/2022 Paying for Meds Answer Date Recorded Do you have trouble paying for medicines? No 04/22/2022 Paying Utility Bills Answer Date Record ed Do you have trouble paying your heating or elect ricity bill? No 04/22/2022 Transportation Answer Date Recorded Has the lack of transportati on kept you from medical appointments or from getting medications? No 04/22/2022 Unemployment Answer Date Recorded Are you currently unemployed or working on a part-time or temporary basis, and looking for work? Yes 04/22/2022 Digital Access Answer Date Recorded No 07/08/2022 No 07/08/2022 Reliable internet access at home? Not on file 07/08/2022 Device with a working camera? Not on file Intimate Partner Violence Answer Date R ecorded Denied Basic Needs Not on file 03/24/2023 In the past 12 months have y ou been in a relationship with a person who hurts, threatens, or tries to control you? No 03/24/2023 Worried food would run out Not on file 03/24 In the past 12 months have y ou been in a relationship with a person who hurts, threatens, or tries to control you? No 03/24/2023 Sex and Gender Information Value Date Recorded Sex Assigned at Male 12/23/2019 10:38 AM EST Legal Sex Male 9:22 PM EDT Gender Identity Male 12/23/2019 10:38 AM EST Sexual Orientation Not on file Last Filed Vital Signs Vital Sign Reading Time Taken Comments Blood Pressure 120/74 07/15/2024 7:55 AM EDT Pulse 65 07/15/2024 7:55 AM EDT Temperature 36.8 C (98.2 F) 03/24/2023 2:10 PM EST Respiratory Rate 16 04/22/2022 7:56 AM EST Oxygen Saturation 96% 07/15/2024 7:55 AM EDT Inhaled Oxygen Concentration - - Weight 103.9 kg (229 lb) 07/15/2024 7:55 AM EDT Height 176.5 cm (5' 9.49 ) 07/15/2024 7:55 AM ED T Body Mass Index 33.34 07/15/2024 7:55 AM EDT Plan of Treatment Upcoming Encounters Date Type Department Care Team (Late st Contact Info) Description 07/12/2025 8:00 AM EDT Office Visit [facility] [address] [place] [address] [address]rd Floor, [address] [place] [address] Chano Rivas MD [address] [place] [phone] [email or web address] Health Maintenance Due Date Last Done Comments HEPATITIS A VACCINES (1 of 2 - Risk 2-dose series) 01/18/1999 Adult Td,Tdap Booster 08/03/2023 08/02/2013 DEPRESSION SCREENING 03/24/2024 03/24/2023 INFLUENZA VACCINE (#1) 2024 12/16/2013 COVID-19 VACCINE ( season) 2024 05/26/2020, 05/03/2020 COLOGUARD 01/18/2025 COLONOSCOPY 01/18/2025 COLORECTAL CANCER SCREENING 01/18/2025 FIT TEST 01/18/2025 FOBT 01/18/2025 SIGMOIDOSCOPY 01/18/2025 VIRTUAL COLONOSCOPY 01/18/2025 SCREENING FOR DIABETES 01/16/2026 01/16/2023, 2022 LIPID PANEL 01/17/2028 01/16/2023, 08/16, 07/03/2022, Additional history exists HEPATITIS C SCREENING Completed 12/31/2020, 019 HIV ONE-TIME SCREENING (18-65 YEARS) Completed 12/31/2020 SMOKING STATUS SCREENING (Once After 26 Yrs) Completed 07/15/2024 HIB VACCINES Aged Out No longer eligi ble based on patient's age to complete this topic MENINGOCOCCAL VACCINES (ACWY) Aged Out No longer eligible based on patient's age to complete this topic MENINGOCOCCAL VACCINES (B) Aged Out N o longer eligible based on patient's age to complete this topic PNEUMOCOCCAL VACCINES (0-49 years) Aged Out No longer eligible based on patient's age to complete this topic Medical Devices Not on file Procedures Procedure Name Priority Date/Time Associated Diagnosis Comments LIPID PANEL Routine 01/16/2023 8:21 AM EST Mixed hyperlipidemia HEPATITIS C ANTIBODY, QUALITATIVE Routine 12/31/2020 12:20 PM EST Routine screening for STI (sexually transmitted infection) from Last 3 Months or Most Recently Relevant to Health Maintenance Results * (ABNORMAL) Lipid panel (01/16/2023 8:21 AM EST) HDL 37 mg/dL [facility] Comment: Interpretation <40 mg/dL: Low HDL cholesterol (major risk factor for CHD) Greater than or equal to 60 mg/dL: High HDL cholesterol ( negative risk factor for CHD) HDL - cholesterol is affected by a number of factors, e.g. smoking, excerise, hormones, sex and age. CHOLESTEROL 166 0 - 240 mg/dL [facility] TRIGLYCERIDES 161(H) 30 - 160 mg/dL [facility] LDL 97 50 - 129 mg/dL [facility] Comment: LDL levels in terms of risk for coronary heart disease: <100 mg/dL: Optimal 100-129 mg/dL: Near or above optimal 130-159 mg/dL: Borderline high 160-189 mg/dL: High >190 mg/dL: Very High CARDIAC RISK RATIO 4.5 3.4 - 5.0 [facility] Blood 01/16/2023 8:21 AM EST 01/16/2023 8:22 AM EST us Rolan Almonte MD LAB BLOOD BKR ORDERABLES Fi nal Result [facility] [address] [place] [address] * Hepatitis C antibody, qualitative (12/31/2020 12:20 PM EST) HCV NON-REACTIV E NON-REACTI VE [facility] Blood 12/31/2020 12:2 0 PM EST 12/31/2020 12:24 PM EST us Radha Soriano Dannielle CHANGER FIXER LAB BLOOD BKR ORDERABL ES Final Result [facility] [address] [place] [address] from Last 3 Months or Most Recently Relevant to Health Maintenance Insurance [facility] Member Subscriber Plan / Payer (Ef fective 2015-Present) Name:Adam Chan Relation to Subscriber:Self Name:Adam Chan Payer ID:[id number] (NAIC) Type:PPO Address: [place] [id number] Care Teams Head Inspector And Center Marker Relationship Specialty Start Date End Date Mac Ureña MD [address] [place] [address], [address] [place], [place] [id number] [email or web address] PCP - General Family Medicine 05/25/23 Wilmar Leyva MD [address] [place] [phone] Gastroenterology 03/04/19 Additional Source Comments The information contained in this document represents components of the legal health record. It is not the complete legal health record.[facility]
--- OUTSIDE RECORDS SUMMARY | 2025-01-27 06:40 | XMS_ITS | Encounter Summary ---
Author Organization [facility] Address [address] [facility] [address] [place] [address] Phone Care Team Providers Care Clerical Car Checker Name Role Phone Radha Spicer CNP Primary Care Provider Wilmar Leyva MD Unavailable [phone] Pcp, Not Required Primary Care Provider Unavaila Mac Lawson MD Primary Care Provider [phone]- [phone] Encounter Details Date Type Department Care Team (Late st Contact Info) Description 08/29/2020 Transcribe Orders [facility] PFT Lab [address] [place] [address] Radha Spicer, GIFT SHOP CLERK [address] [place] [address] [email or web address] Social History Tobacco Use Types Packs/Day Years Used Date Smoking Tobacco: Former Cigarettes 0.1 2 1 996 - 1998 Smokeless Tobacco: Never Comments:prior 2-3 cigarette s [...] high school, GED, job training, learning the [place] language, technical skills, or developing parenting skills)? [...] Description 07/12/2025 8:00 AM EDT Office Visit [facility] [address] [place] [address] [address] Floor, [address] [place] [address] Chano Rivas MD [address] [place] [phone] [email or web address] documented as of this encounter Visit Diagnoses Not on filedocumented in this encounter Additional Health Concerns Assessment Noted Time PHQ-2 Depression Total Score: 0 07/07/19 7:53 AM EDT documented as of this encounter Care Teams Clerical Car Checker Relationship Specialty Start Date End Date Radha Spicer CNP [address] [place] [address] PCP - General Internal Medicine 12/29/17 09/22/22 Pcp, Not Required [address] [place] [address] [address] [place] [address] PCP - General 11/03/22 05/24/23 Mac Ureña MD [address] [place] [address], [address] [place] [address] [email or web address] PCP - General Family Medicine 05/25/23 Wilmar Leyva MD [address] [place] [address] [address] [place] [phone] Gastroenterology 03/04/19 documented as of this encounter Additional Source Comments The information contained in this document represents components of the legal health record. It is not the complete legal health record.[facility]
--- OUTSIDE RECORDS SUMMARY | 2025-01-27 06:40 | XMS_ITS | Patient Health Record ---
Author Organization [facility] Address [address] [place] [address] Care Team Providers Care Pilot Boat Operator Name Role Phone Radha Spicer Primary Care Provider Unavailab Wilmar [place] Jr Allergies No Known Allergies Reason For Referral No Information Medications Medication SIG (Take, Route, Frequency, Duration) Notes Start Date End Date Status Repatha 140 MG/ML Solution Prefilled Syringe 1 mL Subcutaneous; Duration: 30 day(s) Active Advil PRN Active Omeprazole 20 MG Tablet Delayed Release Disintegrating 1 tablet Orally Once a day; Duration: 90 day(s) 02/13/2020 Active Immunizations Vaccine Route Administration Date Status Comme nts Influenza Unknown 09/22/2018 Refused Influenza Unknown 02/13/2020 Refused Influenza Unknown 06/29/2023 Refused Social History Tobacco Use: Social History Observation Description Date Details (start date - stop date) Current Smoker NA - NA Social History Tobacco Use: Social Info Question Answer Notes Tobacco Use/Smoking Patient is a current smoker Additional Details Category Social Info Options Details Miscellaneous: Marital status: Occupation: [employer], [employer] in [place] Problems Problem Type SNOMED Code ICD Code Onset Dates Problem Status W/U Status Risk Notes Problem Gastroesophageal reflux disease without esophagitis (897840066) Gastroesophageal reflux disease without esophagitis (K21.9) Active confirmed Problem Elevated liver enzymes level (866984767) Elevated liver function tests (R94.5) Active confirmed Encounters Encounter Location Date Provider Diagnosis [facility] [address] [place] [address] 06/29/2024 Wilmar Gordon Jr Plan Of Treatment Future Test Test Name Order Date UPPER GI ENDOSCOPY 02/13/2020 Insurance Providers Payer Name Payer Address Payer Phone Subscriber Number Group Number Insured Name Patient Relationship to Insured Coverage Start Date Coverage End Date [facility] [address] [address] [place] [address] [id number] TL GOLD Self - patient is the insured Medical (General) History Medical History History ICD Code Hyperlipidemia Palpitations/atrial fibrillation, curren tly on metoprolol Gastroesophageal reflux disease, EGD 02/20, no HP or BE Surgical History Surgery Date(Month/Year)
--- OUTSIDE RECORDS SUMMARY | 2025-01-27 06:40 | XMS_ITS | Encounter Summary ---
Author Organization [facility] Address [address] [facility] [address] [place] [phone] Phone Care Team Providers Care Cake Press Operator Name Role Phone Kendrickriki Radhafred Soriano CNP Primary Care Provider Wilmar Leyva MD Unavailable Pcp, Not Required Primary Care Provider Unavaila Mac Lawson MD Primary Care Provider [phone]- [phone] Encounter Details Date Type Department Care Team (Late st Contact Info) Description 07/03/2022 Procedure Pass [facility] [address] [place] [address] Social History Tobacco Use Types Packs/Day Years Used Date Smoking Tobacco: Former Cigarettes 0.1 2 1 996 - 1997 Smokeless Tobacco: Never Comments:prior 2-3 cigarette s daily, d/c vape Alcohol Use Standard Drinks/Week Comments Yes 0 (1 standard drink = 0.6 oz pur e alcohol) 1-2 drinks, monthly or less Child or Family Care Answer Date Record ed Do you have problems with on e of the following making it difficult for you to work, study, or receive health care? No 04/22/2022 Education Answer Date Recorded Are you interested in help w ith more adult education (for example, completing high school, GED, job training, learning the [place] language, technical skills, or developing parenting skills)? No 04/22/2022 Are you concerned about learning? Not on file 04/22/2022 No 04/22/2022 Yes 04/22/2022 Food Answer Date Recorded Within the past [...] your housing situation today? I have ingrid louise 04/22/2022 How many times have you move [...] basis, and looking for work? Yes 04/22/2022 Sex and Gender Information Value Date Recorded Sex Assigned at Male 12/23/2019 10:38 AM EST Legal Sex Male 9:22 PM EDT Gender Identity Male 12/23/2019 10:38 AM EST Sexual Orientation Not on file documented as of this encounter Plan of Treatment Upcoming Encounters Date Type Department Care Team (Late st Contact Info) Description 07/12/2025 8:00 AM EDT Office Visit [facility] [address] [place] [address] [address]rd Floor, [address] [place] [address] Chano Rivas MD [address] [place] [address] documented as of this encounter Visit Diagnoses Not on filedocumented in this encounter Additional Health Concerns Assessment Noted Time PHQ-2 Depression Total Score: 2 04/23/19 7:44 AM EST documented as of this encounter Care Teams Cake Press Operator Relationship Specialty Start Date End Date Radha Spicer CNP [address] [place] [address] PCP - General Internal Medicine 12/29/17 09/22/22 Pcp, Not Required [address] [place] [address] [address] [place] [address] PCP - General 11/03/22 05/24/23 Mac Ureña MD [address] [facility] [place] [address] [email or web address] PCP - General Family Medicine 05/25/23 Wilmar Leyva MD [address] [place] [address] [place] [phone] Gastroenterology 03/04/19 documented as of this encounter Additional Source Comments The information contained in this document represents components of the legal health record. It is not the complete legal health record.[facility]
--- OUTSIDE RECORDS SUMMARY | 2025-01-27 06:40 | XMS_ITS | Encounter Summary ---
Author Organization [facility] Address [address] [facility] [address] [place] [address] Phone Care Team Providers Care Entry Level Electrician Name Role Phone Caitlin Gardiner NP Unavailable Shonna Galicia SQL DEVELOPER DBA Unavailable [phone] Park Bae MD Unavailable Nina Wong MD Unavailable Jose L Johnson MD Unavailable [phone] Radha Spicer [facility] Primary Care Provider Wilmar Leyva MD Unavailable [phone] Pcp, Not Required Primary Care Provider Unavaila Mac Lawson MD Primary Care Provider [phone] Reason for Referral * MRI/CAT Scan - Closed Specialty Diagnoses / Procedures Referred By Contac t Referred To Contact Diagnoses Palpitations Procedures MCT (Mobile Cardiac Telemetry) Lori Howard MD Phone: tel: fax: mailto:[email or web address] Referral ID Status Reason Start Date Expiration Date Visits Re quested Visits Authorized [id number] Closed 12/29/2018 12/29/2019 1 1 Encounter Details Date Type Department Care Team (Late st Contact Info) Description 12/29/2018 Ancillary Orders [facility] [address] [facility] [address], [address] [place], [place] [id number] Lori Howard MD [address] [place] [address] [email or web address] Palpitations Social History Tobacco Use Types Packs/Day Years Used Date Smoking Tobacco: Former Cigarettes 0.1 2 1 996 - 1998 Smokeless Tobacco: Never Comments:prior 2-3 cigarette s daily, still using nicotene-using vape Alcohol Use Standard Drinks/Week Comments Yes 0 (1 standard drink = 0.6 oz pur e alcohol) couples times a year Sex and Gender Information Value Date Recorded Sex Assigned at Male 12/23/2019 10:38 AM EST Legal Sex Male 9:22 PM EDT Gender Identity Male 12/23/2019 10:38 AM EST Sexual Orientation Not on file documented as of this encounter Plan of Treatment Upcoming Encounters Date Type Department Care Team (Late st Contact Info) Description 07/12/2025 8:00 AM EDT Office Visit [facility] [address] [place] [address] [address]rd Floor, [address] [place] [address] Chano Rivas MD [address] [place] [address] [email or web address] Scheduled Orders Name Type Priority Associated Diagnoses Orde r Schedule MCT (Mobile Cardiac Telemetry) Cardiac Monitors Routine Palpitations Expected: 01/03/2019, Expires: 06/20/2019 documented as of this encounter Visit Diagnoses Diagnosis Palpitations documented in this encounter Additional Health Concerns Assessment Noted Time PHQ-2 Depression Total Score: 0 10/15/19 19 8:14 AM EDT documented as of this encounter Care Teams Entry Level Electrician Relationship Specialty Start Date End Date Radha Spicer CNP [address] [place] [address] [email or web address] PCP - General Internal Medicine 12/29/17 09/22/22 Pcp, Not Required [address] [place] [address] [address] [place] [address] PCP - General 11/03/22 05/24/23 Mac Ureña MD [address] [facility] [place] [address] [email or web address] PCP - General Family Medicine 05/25/23 Caitlin Gardiner, STEPHANIE [address] [place] [email or web address] Historical LMR Provider 12/04/16 1 04/02/18 Shonna Galicia FNP [address] [facility] [address], [address] [place] [address] [email or web address] Historical LMR Provider 12/04/16 01/30/19 Park Bae MD [address] [facility] [address], [address] [place] [address] [email or web address] Historical LMR Provider 12/04/16 Nina Basurto MD [address] [place] [address] Historical LMR Provider 12/04/1601/30 Jose L Johnson MD [address] [place] [id number] [email or web address] Historical LMR Provider 12/04/16 Wilmar Leyva MD [address] [place] [address] [place] [phone] Gastroenterology 03/04/19 documented as of this encounter Additional Source Comments The information contained in this document represents components of the legal health record. It is not the complete legal health record.[facility]
--- OUTSIDE RECORDS SUMMARY | 2025-01-27 06:40 | XMS_ITS | Encounter Summary ---
Author Organization [facility] Address [address] [facility] [address] [place] [address] Phone Care Team Providers Care Transfer And Pumphouse Operator Name Role Phone Nancyobed Radhafred Soriano CNP Primary Care Provider Wilmar Leyva MD Unavailable [phone] Pcp, Not Required Primary Care Provider Unavaila Mac Lawson MD Primary Care Provider [phone] Encounter Details Date Type Department Care Team (Late st Contact Info) Description 07/22/2019 Procedure Pass [address] [place] [address] Social History Tobacco Use Types Packs/Day Years [...] Description 07/12/2025 8:00 AM EDT Office Visit [facility] [address] [place] [address] [address] Floor, [address] [place] [address] Chano Rivas MD [address] [place] [address] documented as of this encounter Visit Diagnoses Not on filedocumented in this encounter Additional Health Concerns Assessment Noted Time PHQ-2 Depression Total Score: 0 10/15/19 19 8:14 AM EDT documented as of this encounter Care Teams Transfer And Pumphouse Operator Relationship Specialty Start Date End Date NancyRadha clayCURT [address] [place] [address] [email or web address] PCP - General Internal Medicine 12/29/17 09/22/22 Pcp, Not Required [address] [place] [address] [address] [place] [phone] PCP - General 11/03/22 05/24/23 Mac Ureña MD [address] [place] [address], [address] [place] [address] [email or web address] PCP - General Family Medicine 05/25/23 Wilmar Leyva MD [address] [place] [address] [address] [place] [phone] Gastroenterology 03/04/19 documented as of this encounter Additional Source Comments The information contained in this document represents components of the legal health record. It is not the complete legal health record.[facility]
[2025-01-27 06:47] LABS: MANUAL DIFF FLAG NO
[2025-01-27 06:55] LABS: Hematocrit 49.6 % (42.0-52.0); Hemoglobin 16.5 g/dl (14.0-18.0); Imm Gran Abs Auto 0.02 X10*3/uL (0.00-0.03); Imm Gran Pct Auto 0.3 % (0.0-0.4); Lymphocytes Absolute Auto 2.7 X10*3/uL (1.2-4.9); Mean Corpuscular HGB Conc 33.3 g/dl (31.0-36.0); Mean Corpuscular Hemoglobin 28.0 pg (27.0-33.0); Mean Corpuscular Volume 84.2 fL (80.0-98.0); NRBC Abs Auto 0.000 X10*3/uL (0.0-0.012); NRBC Pct Auto 0.0 /100WBC (0.0-0.2); Platelet Count 283 X10*3/uL (160-400); Red Blood Count 5.89 X10*6/uL (4.60-5.80); White Blood Count 6.6 X10*3/uL (4.8-10.8)
[2025-01-27 07:18] LABS: Alanine Aminotransferase 50 U/L (0-40); Albumin Level 4.4 g/dL (3.5-5.0); Alkaline Phosphatase 72 U/L (39-117); Anion Gap 15 (12-20); Aspartate Amino Transferase 40 U/L (5-37); Blood Urea Nitrogen 11 mg/dL (9-16); Calcium 9.0 mg/dL (8.4-10.2); Carbon Dioxide 21 mmol/L (22-29); Chloride 109 mmol/L (96-108); Creatinine Clr Calc Pharmacy 126.1; Estimated Glomerular Filt Rate > 60; Magnesium 2.3 mg/dL (1.6-2.6); Potassium 3.8 mmol/L (3.3-5.1); Sodium 141 mmol/L (135-145); Total Protein 7.6 g/dL (6.5-8.0)
[2025-01-27 07:46] VITALS: BP 112/76; PULSE 82; RESP 16; TEMP 36.7; O2SAT 96
--- NOTE | 2025-01-27 07:47 | PC.NURSE ---
Pt now inNSR no ectopy. VSS Denies complaints. EKG being done
--- NOTE | 2025-01-27 07:47 | ECG_ITS ---
Test Reason : rhythm change Blood Pressure : */* mmHG Vent. Rate : 82 BPM Atrial Rate : 82 BPM P-R Int : 152 ms QRS Dur : 94 ms QT Int : 364 ms P-R-T Axes : 31 0 13 degrees QTcB Int : 425 ms Normal sinus rhythm Normal ECG When compared with ECG of 27-Jan-2025 06:02, Sinus rhythm has replaced Atrial fibrillation Vent. rate has decreased by [address] no longer depressed in Anterolateral leads Referred By: Angelo Grullon Electronically Signed By: LETTY MIGUEL MD
[2025-01-27 08:32] VITALS: BP 112/76; PULSE 82; RESP 16; TEMP 36.7; O2SAT 96
== END 2025-01-27 08:33 | disposition home or self-care (01) ==
PROVIDERS: Emergency Provider Emergency Medicine
DX: I48.0 Paroxysmal atrial fibrillation (principal); E78.00 Pure hypercholesterolemia, unspecified; Z87.891 Personal history of nicotine dependence; Z79.01 Long term (current) use of anticoagulants; Z79.899 Other long term (current) drug therapy
CPT/HCPCS: 36415; 80053; 83735; 84443; 85025; 93005; 96361; 96374; 99284; J0616

== ENCOUNTER → 2025-01-27 06:04 | Outpatient (BNV) | payer OTHER, SELFPAY | PROVIDERS: Emergency Provider Emergency Medicine; Visit Provider Internal Medicine Cardiovascular Disease | DX: I48.91 Unspecified atrial fibrillation (principal); Z13.6 Encounter for screening for cardiovascular disorders | CPT/HCPCS: 93010 ==